=== PATIENT | male | born 1955 | race Caucasian/White ===

== ENCOUNTER → 2017-12-27 10:29 | Outpatient (CLI) | payer MEDICARE, MEDICAID, SELFPAY ==
[2017-12-27 12:14] LABS: INR 2.73 (0.9-1.1); Prothrombin Time 29.8 seconds (9.4-11.8)
== END ==
PROVIDERS: Visit Provider Family Medicine
DX: Z79.01 Long term (current) use of anticoagulants (principal); Z51.81 Encounter for therapeutic drug level monitoring
CPT/HCPCS: 36415; 85610

== ENCOUNTER → 2018-01-27 11:14 | Outpatient (CLI) | payer MEDICARE, MEDICAID, SELFPAY ==
[2018-01-27 11:34] LABS: INR 3.03 (0.9-1.1); Prothrombin Time 33.1 seconds (9.4-11.8)
== END ==
PROVIDERS: Visit Provider Family Medicine
DX: Z79.01 Long term (current) use of anticoagulants (principal); Z51.81 Encounter for therapeutic drug level monitoring
CPT/HCPCS: 36415; 85610

== ENCOUNTER → 2018-02-10 09:45 | Outpatient (CLI) | payer MEDICARE, MEDICAID, SELFPAY ==
[2018-02-10 10:19] LABS: INR 2.58 (0.9-1.1); Prothrombin Time 28.1 seconds (9.4-11.8)
== END ==
PROVIDERS: Visit Provider Family Medicine
DX: Z79.01 Long term (current) use of anticoagulants (principal)
CPT/HCPCS: 36415; 85610

== ENCOUNTER → 2018-12-15 14:33 | Outpatient (CLI) | payer MEDICARE, MEDICAID, SELFPAY ==
[2018-12-15 14:52] LABS: Prothrombin Time 20.2 seconds (9.4-11.8)
== END ==
PROVIDERS: Visit Provider Nurse Practitioner Family
DX: Z51.81 Encounter for therapeutic drug level monitoring (principal); Z79.01 Long term (current) use of anticoagulants; I48.0 Paroxysmal atrial fibrillation
CPT/HCPCS: 36415; 85610

== ENCOUNTER → 2022-03-06 14:47 | Outpatient (CLI) | payer MEDICARE, MEDICAID, SELFPAY | PROVIDERS: PCP Nurse Practitioner Family; Visit Provider Nurse Practitioner Family | DX: I49.9 Cardiac arrhythmia, unspecified (principal) | CPT/HCPCS: 93225; 93226 ==

== ENCOUNTER → 2022-04-04 07:53 | Outpatient (CLI) | payer MEDICARE, MEDICAID, SELFPAY | PROVIDERS: PCP Nurse Practitioner Family; Visit Provider Nurse Practitioner | DX: R06.09 Other forms of dyspnea (principal) | CPT/HCPCS: 78452; 93017; 93306; A9502; J2785 ==

== ENCOUNTER → 2022-04-27 14:26 | Outpatient (CLI) | payer MEDICARE, MEDICAID, SELFPAY ==
--- NOTE | 2022-04-27 14:29 | MR_ITS ---
FINAL REPORT TECHNIQUE: Multiplanar and multisequence imaging of the brain was obtained without contrast. CLINICAL HISTORY: . DIZZINESS [id number] FINDINGS: There is no mass effect or midline shift. The ventricles are symmetric in size and configuration without hydrocephalus. There is encephalomalacia in the inferior right frontal lobe. There is T2 abnormality likely representing gliosis. The cerebellum and brainstem have a normal appearance. There are no areas of restricted diffusion on diffusion weighted images to suggest acute infarct. Soft tissues are without acute abnormality. IMPRESSION: No acute intracranial abnormality. Chronic findings in the inferior right frontal lobe. Reviewed, Interpreted and Dictated by Dora Grant MD Transcribed by Nadir Lopez Authenticated and [facility]
== END ==
PROVIDERS: PCP Nurse Practitioner Family; Visit Provider Nurse Practitioner Family
DX: R42 Dizziness and giddiness (principal)
CPT/HCPCS: 70551

== ENCOUNTER → 2022-05-09 10:22 | Outpatient (CLI) | payer MEDICARE, MEDICAID, SELFPAY ==
[2022-05-09 11:00] LABS: Basophils # 0.1 K/mm3 (0-0.2); Basophils % 1.3 % (0.1-2.0); Eosinophils # 0.2 K/mm3 (0.0-0.4); Hematocrit 40.5 % (42.0-52.0); Lymphocytes # 1.3 K/mm3 (0.7-4.5); Lymphocytes % 28.8 % (10-50); Mean Corpuscular HGB Conc 32.2 g/dL (31.8-35.4); Mean Corpuscular Hemoglobin 29.9 pg (27.0-31.2); Mean Corpuscular Volume 92.8 fl (80-94); Mean Platelet Volume 8.2 fl (7.4-10.4); Monocytes # 0.3 K/mm3 (0.1-1.0); Neutrophils # 2.7 K/mm3 (1.8-7.8); Neutrophils % 57.9 % (37.0-80.0); Platelet Count 249 K/mm3 (142-424); Red Blood Count 4.36 M/mm3 (4.60-6.20); Red Cell Distribution Width 14.9 % (11.5-17.5); White Blood Count 4.6 K/mm3 (4.8-10.8)
[2022-05-09 11:24] LABS: Chloride 106 mmol/L (98-107); Potassium 4.4 mmoL/L (3.5-5.1); Sodium 141 mmol/L (136-145)
[2022-05-09 11:26] LABS: Bilirubin,Unconjugated 0.2 mg/dL (0.0-1.1); Blood Urea Nitrogen 26 mg/dl (9-20); Estimated Glomerular Filt Rate 97 ml/min (>60); GFR (African American) 117 ML/MIN (>60)
[2022-05-09 11:27] LABS: Alanine Aminotransferase 33 U/L (12-78); Albumin Level 4.5 g/dl (3.5-5.0); Alkaline Phosphatase 92 U/L (38-126); Anion Gap 8.4 mEq/L (5-15); Aspartate Amino Transferase 45 U/L (17-59); Bilirubin,Direct 0.2 mg/dl (0.0-0.4); Bilirubin,Indirect 0.2 mg/dL (0.0-0.9); Bilirubin,Total 0.4 mg/dl (0.2-1.3); Calcium 9.3 mg/dl (8.4-10.2); Carbon Dioxide 31 mmol/L (22.0-30.0); Chol/HDL Ratio 2.7 (1-3.5); Cholesterol 152 mg/dl (140-200); Glucose 99 mg/dl (74-100); HDL Cholesterol 56 mg/dl (40-60); Total Protein,Serum 6.9 g/dl (6.3-8.2); Triglycerides 88 mg/dl (30-150)
[2022-05-09 11:58] LABS: Thyroid Stimulating Hormone 2.51 uIU/mL (0.465-4.68)
[2022-05-09 12:02] LABS: Free T4 (Free Thyroxine) 0.94 ng/dl (0.78-2.19)
[2022-05-10 11:30] LABS: Direct LDL Cholesterol 80 mg/dL (100-129); VLDL Cholesterol 18 mg/dL (0-40)
== END ==
PROVIDERS: PCP Nurse Practitioner Family; Visit Provider Nurse Practitioner
DX: I48.91 Unspecified atrial fibrillation (principal); E78.5 Hyperlipidemia, unspecified; I10 Essential (primary) hypertension
CPT/HCPCS: 36415; 80048; 80061; 80076; 84439; 84443; 85025

== ENCOUNTER → 2022-06-23 11:16 | Outpatient (CLI) | payer MEDICARE, MEDICAID, SELFPAY | PROVIDERS: PCP Nurse Practitioner Family; Visit Provider Surgery | DX: Z01.812 Encounter for preprocedural laboratory examination (principal); Z20.822 Contact with and (suspected) exposure to COVID-19; Z12.11 Encounter for screening for malignant neoplasm of colon | CPT/HCPCS: C9803; U0003; U0005 ==

== ENCOUNTER 2022-06-26 10:54 | Day surgery (SDC) | payer MEDICARE, MEDICAID, SELFPAY ==
[2022-06-21 16:12] VITALS: BMI 22.9
[2022-06-26 11:26] VITALS: BP 135/77; PULSE 61; RESP 17; TEMP 37.1; O2SAT 99
--- NOTE | 2022-06-26 11:44 | EXP.ANES.CKL ---
[facility] Medical History History of atrial fibrillation History of hyperlipidemia History of hypertension Surgical History History of appendectomy Family History Other Leukemia Social History Smoking Status: Former smoker alcohol intake: never substance use type: denies use current occupational status: retired Travel in the last 8 weeks: None [facility] Anesthesia Checklist Patient Identification Patient Identification: Arm Band and Verbal (Name & ) Structural Data Admitted From: Home Planned Operative Procedure/s: Colonoscopy Consent for Planned Operative Procedure(s) Verified: Yes NPO Status Verified Time NPO: 07:00 (<1/2 cup black coffee) Chart Verification Results Verified: CBC and BMP Airway Assessment C-Spine Mobility Assessed: Yes TMJ Mobility Assessed: Yes Dentition: Edentulous Neurological Assessment Level of Consciousness: Awake Hx Seizures: No Numbness or tingling in extremities: No Anesthesia Plan Anesthesia Risk discussed: Yes Anesthesia Plan: Verified ASA Class: III Anesthesia Type: MAC
[2022-06-26 12:22] VITALS: O2SAT 99
--- NOTE | 2022-06-26 12:37 | HMH.SCOPE ---
Procedure: Date: 06/26/22 Patient Date of :: 1955 Procedure Performed:: Limited flexible sigmoidoscopy Colonoscopy aborted secondary to exceedingly poor bowel preparation. Indications:: Screening Performing Provider:: Panfilo Guzmán MD Referring Provider:: . Sedation:: Monitored anesthesia care Procedure:: After informed consent was obtained the patient was taken to the endoscopy suite. Sedation ensued after the patient was transferred to the left lateral decubitus position. Pulse, blood pressure, and oxygen saturation were monitored throughout the procedure. Digital rectal exam revealed no significant abnormality. The colonoscope was placed in position. Visualization was notably limited secondary to poor bowel preparation. As the colonoscope was advanced into the sigmoid colon visualization became increasingly poor and the decision was made to abort further efforts. The colonoscope was carefully removed and the patient was transferred to recovery in stable condition. Please see findings and specimens below for detail. Findings:: Colonoscopy aborted secondary to exceedingly poor bowel preparation Specimens:: None Recommendations:: Short-term repeat colonoscopy with extended/alternative bowel preparation. Patient may benefit from gastroenterology consultation secondary to possible chronic constipation. Complications:: Colonoscopy aborted secondary to exceedingly poor bowel preparation Estimated blood obtained (mL): 0
[2022-06-26 12:40] VITALS: BP 104/67; PULSE 59; RESP 12; TEMP 36.4; O2SAT 96
[2022-06-26 12:50] VITALS: BP 101/66; PULSE 51; RESP 16; O2SAT 96
[2022-06-26 13:00] VITALS: BP 153/68; PULSE 57; RESP 16; O2SAT 98
[2022-06-26 13:10] VITALS: BP 153/68; PULSE 58; RESP 16; TEMP 36.4; O2SAT 98
== END 2022-06-26 13:10 | disposition home or self-care (01) ==
PROVIDERS: PCP Nurse Practitioner Family; Visit Provider Surgery
PROC: 0DJD8ZZ Inspection of Lower Intestinal Tract, Via Natural or Artificial Opening Endoscopic (ICD-10-PCS; CPT 45330; principal; 2022-06-26 12:30)
DX: Z12.11 Encounter for screening for malignant neoplasm of colon (principal); Z91.19 Patient's noncompliance with other medical treatment and regimen; Z79.899 Other long term (current) drug therapy
CPT/HCPCS: G0104

== ENCOUNTER 2022-08-11 17:07 | Emergency (ER) | payer MEDICARE, MEDICAID, SELFPAY ==
[2022-08-11 18:15] VITALS: BP 116/83; PULSE 81; RESP 21; TEMP 36.8; O2SAT 98; BMI 23.1
--- NOTE | 2022-08-11 18:54 | EXP.UTC ---
Discharge Plan Disposition Patient Disposition: Home, Self-Care Condition: Good Prescriptions Prescriptions: New prednisone 10 mg tablet 10 mg PO BID 5 Days Qty: 10 0RF amoxicillin-pot clavulanate 875-125 mg Tablet 1 tab PO Q12H Qty: 20 0RF guaifenesin [Mucinex] 600 mg tablet extended release 12hr 600 mg PO BID PRN (Reason: cough) Qty: 20 0RF No Action Centrum Silver Men 300-600-300 mcg tablet 1 tab PO DAILY sodium,potassium,mag sulfates [Suprep Bowel Prep Kit] 17.5-3.13-1.6 gram recon soln See Rx Instructions PO .COMPLEX Qty: 354 0RF Rx Instructions: DILUTE; drink full amount early evening before AND next morning at least 2 hr before procedure; follow w 960 mL water PO Xarelto 20 mg tablet 20 mg PO DAILY Rx Instructions: must administer with evening meal carvedilol 25 MG tablet 25 mg PO BID lisinopril-hydrochlorothiazide 1 EACH tablet 1 tab PO DAILY pravastatin 20 MG tablet 20 mg PO HS omeprazole 20 MG tablet,delayed release (DR/EC) 20 mg PO DAILY Referrals Follow up/Referrals: Cindi Jones APRN [Primary Care Provider] - See instructions Activity Restrictions/Add. Instructions Additional Instructions/Restrictions: Start antibiotic today. Be sure to complete entire prescription even if feeling better Monitor temp. Tylenol every 4 hours as needed and / or ibuprofen every 6 hours as needed ( As long as your primary care physician has told you that it ok to take both. For fever/aches/pains ER if no less than 101 despite Tylenol or Motrin Humidifier/vaporizer or hot steamy shower Mucinex for your cough Be sure to drink lots of water. *Start steroid today. Helps with inflammation therefore, cough and wheezing. Follow directions on the package. Reviewed side effects. Patient reports taking them before. Follow up IMMEDIATELY for new or worsening of symptoms OR no noticeable improvement over the next 48-72 hours. 911 immediately for any life threatening symptoms such as chest pain or difficulty breathing Clinical Impressions Clinical Impression: Bronchitis Sinusitis Qualifiers: Sinusitis location: unspecified location Chronicity: unspecified Qualified Code(s): J32.9 - Chronic sinusitis, unspecified Instructions Patient Instructions: Sinusitis, Acute Bronchitis, DI for Sinusitis Discharge ED Provider: Lisa Morrow [facility] HPI General Stated complaint: SOA,Cough Mode of Arrival: Ambulatory Source of Information: Patient Limitations: No Limitations Time Seen by Provider: 08/11/22 18:54 Description of Symptoms (Recalled from Triage Doc. by RN): PATIENT C/O COUGH AND CHEST CONGESTION X 3 DAYS HEENT Symptoms (Recalled from RN notes): No Resp Symptoms (Recalled from RN notes): Yes Skin Symptoms (Recalled from RN notes): No MS Symptoms (Recalled from RN notes): No Functional Status (Recalled from RN notes): WNL History of Present Illness Provider Complaint: Patient states that he has been having sinus congestion and pressure, cough and feels like it is trying to move into his chest area states that he gets bronchitis sometimes and feels like if he dont get something it is going to turn into bronchitis Related Data Home Medications Medication Instructions Recorded Confirmed carvedilol 25 mg tablet 25 mg PO BID bp 04/05/18 07/04/22 lisinopril 20 1 tab PO DAILY bp 04/05/18 07/04/22 mg-hydrochlorothiazide 25 mg tablet omeprazole 20 mg tablet,delayed 20 mg PO DAILY Heartburn 04/05/18 07/04/22 release pravastatin 20 mg tablet 20 mg PO HS Cholesterol 04/05/18 07/04/22 [id number]-dgj-webwe acid 300 1 tab PO DAILY Supplement 04/03/22 07/04/22 mcg-lycopene 600 mcg-lutein 300 mcg tablet (Centrum Silver Men) rivaroxaban 20 mg tablet (Xarelto) 20 mg PO DAILY Blood thinner 06/21/22 07/04/22 Previous Rx's Medication Instructions Recorded sodium,potassium,mag sulfates 17.5 See Rx Instructions PO .COMPLEX
[2022-08-11 19:03] VITALS: BP 116/83; PULSE 81; RESP 21; TEMP 36.8; O2SAT 98
== END 2022-08-11 19:53 | disposition home or self-care (01) ==
PROVIDERS: Emergency Provider Nurse Practitioner; PCP Nurse Practitioner Family
DX: J32.9 Chronic sinusitis, unspecified (principal)
CPT/HCPCS: 96372; 99212; G0463; J0696

== ENCOUNTER 2022-09-11 06:47 | Day surgery (SDC) | payer MEDICARE, MEDICAID, SELFPAY ==
[2022-09-07 16:40] VITALS: BMI 24.0
[2022-09-11 06:59] VITALS: BP 135/90; PULSE 73; RESP 18; TEMP 36.2; O2SAT 99
--- NOTE | 2022-09-11 07:04 | EXP.ANES.CKL ---
[facility] Disclaimer: The information contained in this section may have been updated after the patient was seen, as this information can be updated by other users. Medical History History of atrial fibrillation History of hyperlipidemia History of hypertension Surgical History History of appendectomy History of colonoscopy Family History Other Leukemia Social History Smoking Status: Former smoker alcohol intake: never substance use type: denies use current occupational status: retired Travel in the last 8 weeks: None [facility] Anesthesia Checklist Patient Identification Patient Identification: Arm Band and Verbal (Name & ) Structural Data Admitted From: Home Planned Operative Procedure/s: Colonoscopy Consent for Planned Operative Procedure(s) Verified: Yes NPO Status Verified Time NPO: 00:00 Airway Assessment C-Spine Mobility Assessed: Yes TMJ Mobility Assessed: Yes Dentition: Edentulous Neurological Assessment Level of Consciousness: Awake Hx Seizures: No Numbness or tingling in extremities: No Anesthesia Plan Anesthesia Risk discussed: Yes Anesthesia Plan: Verified ASA Class: III Anesthesia Type: MAC
[2022-09-11 07:26] VITALS: O2SAT 99
[2022-09-11 07:54] VITALS: BP 92/67; PULSE 60; RESP 18; TEMP 36.4; O2SAT 97
--- NOTE | 2022-09-11 07:55 | P.PCN_ITS ---
Procedure: Date: 09/11/22 Patient Date of :: 1955 Procedure Performed:: Colonoscopy with polypectomy Indications:: Screening Colonoscopy attempted earlier this year; however, procedure was aborted secon jordon to exceedingly poor bowel preparation. Performing Provider:: Panfilo Guzmán MD Referring Provider:: . Sedation:: Monitored anesthesia care Procedure:: After informed consent was obtained the patient was taken to the endoscopy suite. Sedation ensued after the patient was transferred to the left lateral decubitus position. Pulse, blood pressure, and oxygen saturation were monitored throughout the procedure. Digital rectal exam revealed no significant abnormality. The colonoscope was placed in position. The entire colon was evaluated. The colonoscope was carefully removed and the patient was transferred to recovery in stable condition. Please see findings and specimens below for detail. Findings:: Bowel preparation poor with formed stool intermittently dispersed throughout the colon (still improved versus prior evaluation) Hepatic flexure polyp Adjacent proximal transverse colon polyps Specimens:: Hepatic flexure polyp (cold snare) Adjacent proximal transverse colon polyps (cold snare) Recommendations:: Gastroenterology consultation warranted for evaluation/management of likely chronic constipation. Short-term repeat colonoscopy warranted (deferred to gastroenterology service). Complications:: No immediate with the exception of poor bowel preparation Estimated blood obtained (mL): 1
[2022-09-11 08:04] VITALS: BP 95/61; PULSE 56; RESP 16; O2SAT 98
[2022-09-11 08:14] VITALS: BP 113/75; PULSE 69; RESP 16; O2SAT 99
[2022-09-11 08:24] VITALS: BP 130/74; PULSE 60; RESP 16; TEMP 36.4; O2SAT 99
== END 2022-09-11 08:33 | disposition home or self-care (01) ==
PROVIDERS: PCP Nurse Practitioner Family; Visit Provider Surgery
PROC: 0DJD8ZZ Inspection of Lower Intestinal Tract, Via Natural or Artificial Opening Endoscopic (ICD-10-PCS; principal; 2022-09-11 07:30)
DX: K63.5 Polyp of colon (principal); Z91.199 Patient's noncompliance with other medical treatment and regimen due to unspecified reason; Z79.899 Other long term (current) drug therapy
CPT/HCPCS: 45385; 88305

== ENCOUNTER 2023-06-23 | Emergency (ER) | payer MEDICARE, MEDICAID, SELFPAY ==
[2023-06-23 00:11] VITALS: BP 150/84; PULSE 69; RESP 28; TEMP 36.3; O2SAT 100; BMI 23.6
--- NOTE | 2023-06-23 00:15 | CT_ITS ---
PROCEDURE INFORMATION: Exam: CT Abdomen And Pelvis With Contrast Exam date and time: 06/23/2023 12:43 AM Age: 67 years old Clinical indication: Abdominal pain; Additional info: R chest/ruq pain TECHNIQUE: Imaging protocol: Computed tomography of the abdomen and pelvis with contrast. Radiation optimization: All CT scans at this facility use at least one of these dose optimization techniques: automated exposure control; mA and/or kV adjustment per patient size (includes targeted exams where dose is matched to clinical indication); or iterative reconstruction. Contrast material: ISOVUE; Contrast volume: 70 ml; Contrast route: IV; REPORTING DATA: Count of CT and Cardiac NM exams in prior 12 months: This patient has received 0 known CTs and 0 known cardiac nuclear medicine studies in the 12 months prior to the current study. COMPARISON: CR CXR2V XR chest 2V 04/05/2018 9:44 AM FINDINGS: Lungs: Suggestion of background interstitial septal thickening and mild hyperinflation. Bibasilar opacities, likely atelectasis. No lung mass. No pleural effusion. Heart: Borderline cardiomegaly and left atrial enlargement. Trace pericardial effusion. Liver: There are fatty changes of the liver. No hepatic focal lesions. Gallbladder and bile ducts: Normal. No calcified stones. No ductal dilation. Pancreas: The pancreas is mildly atrophic. Spleen: Normal. No splenomegaly. Adrenal glands: Normal. No mass. Kidneys and ureters: Normal. No hydronephrosis. Stomach and bowel: There is a large hiatal hernia containing the a large portion of the stomach. Thickening of the gastric beard is a nonspecific finding but can be seen in the setting of gastritis, in the appropriate clinical setting. Appendix: No evidence of appendicitis. Intraperitoneal space: Unremarkable. No free air. No significant fluid collection. Vasculature: There are atherosclerotic calcifications of the abdominal aorta and its branches. Lymph nodes: Unremarkable. No enlarged lymph nodes. Urinary bladder: Thickening of the bladder beard. Please correlate with urinalysis. Reproductive: Mild prostatomegaly with a tiny central zone calcification. Bones/joints: There are degenerative changes of the SI joints. There are degenerative changes of the lumbosacral spine. Decreased interspinous spaces in the lumbar spine could represent Baastrup's disease. Soft tissues: Unremarkable. IMPRESSION: 1. Large hiatal hernia. Thickening of the gastric beard can be seen in the setting of gastritis in the appropriate clinical setting. 2. Thickening of the beard of the bladder. Please correlate with urinalysis. 3. Additional miscellaneous/pertinent findings as detailed in the body of the report.
--- NOTE | 2023-06-23 00:15 | CT_ITS ---
PROCEDURE INFORMATION: Exam: CTA Chest With Contrast Exam date and time: 06/23/2023 12:43 AM Age: 67 years old Clinical indication: Pain; Chest pressure; Additional info: R chest/ruq pain TECHNIQUE: Imaging protocol: Computed tomographic angiography of the chest with contrast. Exam focused on the arteries. 3D rendering (Not supervised by radiologist): MIP and/or 3D reconstructed images were created by the technologist. Radiation optimization: All CT scans at this facility use at least one of these dose optimization techniques: automated exposure control; mA and/or kV adjustment per patient size (includes targeted exams where dose is matched to clinical indication); or iterative reconstruction. Contrast material: ISOVUE; Contrast volume: 70 ml; Contrast route: INTRAVENOUS (IV); REPORTING DATA: Count of CT and Cardiac NM exams in prior 12 months: This patient has received 0 known CTs and 0 known cardiac nuclear medicine studies in the 12 months prior to the current study. COMPARISON: CR CXR2V XR chest 2V 04/05/2018 9:44 AM FINDINGS: Pulmonary arteries: Normal. No pulmonary emboli. Aorta: There are atherosclerotic calcifications of the aortic arch and the origin of the arch vessels. No aortic aneurysm. No aortic dissection. Lungs: Mild paraseptal emphysema. Suggestion of background mild centrilobular emphysema/hyperinflation. Suggestion of subtle interstitial septal thickening. Bibasilar opacities, likely atelectasis. No consolidation. No masses. Pleural spaces: No pneumothorax. No pleural effusion. Heart: Mild cardiomegaly and left atrial enlargement. Trace pericardial effusion. Lymph nodes: Scattered small cervical lymph nodes are nonspecific. No enlarged lymph nodes by CT size criteria. Bones/joints: Mild kyphotic curvature at the lower thoracic spine. Mild degenerative changes of the thoracic spine. No acute fracture. Soft tissues: There is a large hiatal hernia containing large portion of the stomach. Thickening of the gastric beard is a nonspecific finding.. IMPRESSION: 1. No evidence of acute pulmonary embolism. 2. Large hiatal hernia. 3. Additional miscellaneous/pertinent findings as outlined. COMMENTS: In the absence of a history or active diagnosis of lung cancer, it is recommended that this patient with emphysema be evaluated for enrollment in a low dose CT lung cancer screening program.
--- NOTE | 2023-06-23 00:18 | ECG_ITS ---
APPROVED REPORT Exam: Resting ECG HR:60 bpm ECG Measurements Heart Rate 60 AXES QRSd 83 QRS 93 QT 406 T 87 QTc 407 Conclusion ATRIAL FIBRILLATION BORDERLINE RIGHT AXIS DEVIATION [QRS AXIS > 90] MINIMAL ST DEPRESSION [0.025+ mV ST DEPRESSION] ABNORMAL RHYTHM ECG UNCONFIRMED REPORT Electronically signed by : Eron Jack MD 06/23/2023 07:29:01
--- NOTE | 2023-06-23 00:19 | HMH.EDGENADL ---
Discharge Plan Disposition Patient Disposition: Home, Self-Care Prescriptions Prescriptions: No Action carvedilol 25 mg tablet 25 mg PO BID lisinopril-hydrochlorothiazide 20-25 mg tablet 1 tab PO DAILY pravastatin 20 mg tablet 20 mg PO DAILY omeprazole 20 mg capsule,delayed release(DR/EC) 20 mg PO DAILY Centrum Men 8 mg iron- 200 mcg-600 mcg tablet 1 tab PO DAILY Xarelto 20 mg tablet 20 mg PO DAILY Qty: 90 1RF Rx Instructions: must administer with evening meal guaifenesin [Mucinex] 600 mg tablet extended release 12hr 600 mg PO BID PRN (Reason: cough) Qty: 20 0RF Referrals Follow up/Referrals: Cindi Jones APRN [Primary Care Provider] - See instructions Activity Restrictions/Add. Instructions Additional Instructions/Restrictions: You were evaluated in the emergency department today. Please continue taking your medications at home as prescribed. Follow-up closely with your primary care provider. Return to the emergency department for new or worsening symptoms. Clinical Impressions Clinical Impression: Hernia, hiatal, Shortness of breath Instructions Patient Instructions: DI for Shortness of Breath, DI for Hiatal Hernia Discharge ED Provider: Marisol Choudhary General Adult HPI General Chief complaint: Shortness of Breath/Dyspnea Stated complaint: soa Time Seen by Provider: 06/23/23 00:11 Mode of Arrival: Family Vehicle Source of Information: Patient Limitations: No Limitations Description of Symptoms (Recalled from ER Triage Doc. by RN): 67 yo male presents with CC shortness of air, onset earlier this date that woke him up from sleep. Patient states when he went to bed he was okay . PMH: afib. Takes Xarelto daily. Patient denies productive cough, states very little can be worked up when attempting to cough. Former 1.5 ppd smoker (quit several years ago). Complained of accompanying dizziness. Denies angina, denies n/v/d. Afebrile. Denies sick contact. Minimal swelling present to BLE. History of Present Illness HPI narrative: This patient is a 67-year-old male with a history of atrial fibrillation managed on carvedilol and rivaroxaban, hypertension, and hyperlipidemia presenting to the emergency department for evaluation with concern for shortness of breath as well as right upper quadrant/right-sided chest pain that started suddenly this evening. He states that he had gone to bed and felt fine, but he woke up acutely just prior to arrival with this pain and shortness of breath. Nothing seems to make it better or worse. No recent fevers, chills, cough, congestion, nausea, vomiting, diarrhea, or other concerns. No recent falls or traumatic injuries. He denies any prior abdominal surgeries, and he denies any history of pulmonary issues such as COPD. No history of blood clots or clotting disorders. Related Data Home Medications Medication Instructions Recorded Confirmed carvedilol 25 mg tablet 25 mg PO BID 06/11/23 06/18/23 lisinopril 20 1 tab PO DAILY 06/11/23 06/18/23 mg-hydrochlorothiazide 25 mg tablet multivit,Ca,min-iron 8 mg-folic 1 tab PO DAILY 06/11/23 06/18/23 acid 200 mcg-lycopene 600 mcg tablet (Centrum Men) omeprazole 20 mg capsule,delayed 20 mg PO DAILY 06/11/23 06/18/23 release pravastatin 20 mg tablet 20 mg PO DAILY 06/11/23 06/18/23 Previous Rx's Medication Instructions Recorded guaifenesin 600 mg tablet, 600 mg PO BID PRN cough #20 tabs 08/11/22 extended release 12 hr (Mucinex) rivaroxaban 20 mg tablet (Xarelto) 20 mg PO DAILY Blood thinner #90 12/03/22 tabs Allergies Allergy/AdvReac Type Severity Reaction Status Date / Time No Known Allergies Allergy Verified 06/18/23 09:32 [facility] Disclaimer: The information contained in this section may have been updated after the patient was seen, as this information can be updated by other users. Medical History Ac
[2023-06-23 00:26] LABS: Basophils % 0.5 % (0.1-2.0); Eosinophils # 0.3 K/mm3 (0.0-0.4); Eosinophils % 5.8 % (0.1-12.0); Hematocrit 41.2 % (42.0-52.0); Hemoglobin 13.3 g/dL (14.1-18.0); Lymphocytes # 1.5 K/mm3 (0.7-4.5); Lymphocytes % 29.5 % (10-50); Mean Corpuscular HGB Conc 32.4 g/dL (31.8-35.4); Mean Corpuscular Hemoglobin 30.4 pg (27.0-31.2); Mean Corpuscular Volume 93.9 fl (80-94); Mean Platelet Volume 8.3 fl (7.4-10.4); Monocytes # 0.3 K/mm3 (0.1-1.0); Monocytes % 5.1 % (1.7-9.3); Platelet Count 224 K/mm3 (142-424); Red Blood Count 4.39 M/mm3 (4.60-6.20); Red Cell Distribution Width 13.4 % (11.5-17.5); White Blood Count 5.2 K/mm3 (4.8-10.8)
[2023-06-23 00:30] LABS: Chloride 109 mmol/L (98-107); Potassium 3.5 mmoL/L (3.5-5.1); Sodium 143 mmol/L (136-145)
[2023-06-23 00:32] LABS: Alanine Aminotransferase 40 U/L (12-78); Alkaline Phosphatase 79 U/L (38-126); Anion Gap 10.5 mEq/L (5-15); Aspartate Amino Transferase 62 U/L (17-59); Bilirubin,Total 0.4 mg/dl (0.2-1.3); Blood Urea Nitrogen 21 mg/dl (9-20); Carbon Dioxide 27 mmol/L (22.0-30.0); Creatinine Clearance Estimated 76 mL/min (50-200); Estimated Glomerular Filt Rate 84 ml/min (>60); GFR (African American) 102 ML/MIN (>60); Lipase 70 U/L (23-300)
[2023-06-23 00:33] LABS: Albumin/Globulin Ratio 1.5 (1.1-1.8); Calcium 8.7 mg/dl (8.4-10.2); Globulin 2.7 g/dL (1.3-3.2); Glucose 100 mg/dl (74-100); Total Protein,Serum 6.7 g/dl (6.3-8.2)
[2023-06-23 00:35] LABS: Activated Partial Thrombo Time 34.6 seconds (22.8-30.6); INR 1.47 (0.9-1.1); Prothrombin Time 15.5 seconds (10.1-12.5)
[2023-06-23 00:46] LABS: Troponin I < 0.01 ng/ml (0.00-0.034)
[2023-06-23 02:53] LABS: Microscopic, Urine URINE MICROSCOPIC (MICROSCOPIC)
[2023-06-23 02:58] LABS: Appearance,Urine CLEAR (Clear); Bilirubin,Urine Negative (Negative); Blood, Urine Negative (Negative); Color,Urine YELLOW (Yellow); Glucose,Urine (UA) Negative (Negative); Ketones,Urine Negative (Negative); Leukocyte Esterase,Urine Negative (Negative); Nitrate,Urine Negative (Negative); PH,Urine 7.5 (5.0-8.5); Protein,Urine Negative (Negative); Specific Gravity, Urine 1.015 (1.005-1.030)
[2023-06-23 03:16] LABS: Bacteria,Urine Trace /lpf; RBC,Urine Occasional #/hpf (0-3); Squamous Epithelial Cell,Urine Occasional #/hpf (0-5)
[2023-06-23 03:40] LABS: Troponin I < 0.01 ng/ml (0.00-0.034)
[2023-06-23 04:02] VITALS: BP 126/78; PULSE 56; RESP 13; TEMP 36.9
== END 2023-06-23 04:10 | disposition home or self-care (01) ==
PROVIDERS: Emergency Provider Emergency Medicine; PCP Nurse Practitioner Family
DX: R07.9 Chest pain, unspecified (principal); R06.02 Shortness of breath; K44.9 Diaphragmatic hernia without obstruction or gangrene; I48.91 Unspecified atrial fibrillation; I10 Essential (primary) hypertension; E78.5 Hyperlipidemia, unspecified
CPT/HCPCS: 71275; 74177; 80053; 81001; 83690; 84484; 85025; 85610; 85730; 93005; 96374; 96375; 99285; J2405; Q9967

== ENCOUNTER → 2023-08-15 13:04 | Outpatient (CLI) | payer MEDICARE, MEDICAID, SELFPAY ==
[2023-08-15 11:57] LABS: Adenovirus,PCR Not Detected (NotDetected); Coronavirus 229E Not Detected (NotDetected); Coronavirus NL63 Not Detected (NotDetected); Coronavirus OC43 Not Detected (NotDetected); Coronovirus HKU1,PCR Not Detected (NotDetected); Human Metapneumovirus Not Detected (NotDetected); Influenza A, PCR Not Detected (NotDetected); Influenza AH1, 2009 Not Detected (NotDetected); Influenza AH1, PCR Not Detected (NotDetected); Influenza AH3,PCR Not Detected (NotDetected); Influenza B, PCR Not Detected (NotDetected); Parainfluenza 1, PCR Not Detected (NotDetected); Parainfluenza 2, PCR Not Detected (NotDetected); Parainfluenza 3, PCR Not Detected (NotDetected); Parainfluenza 4, PCR Not Detected (NotDetected); Respiratory Syncytial Virus Not Detected (NotDetected); Rhinovirus/Enterovirus Not Detected (NotDetected)
[2023-08-15 14:19] LABS: Coronavirus 19, PCR Detected (NotDetected)
== END ==
PROVIDERS: PCP Nurse Practitioner Family; Visit Provider Internal Medicine
DX: R50.9 Fever, unspecified (principal); U07.1 COVID-19; R09.81 Nasal congestion
CPT/HCPCS: 87632; 87635

== ENCOUNTER → 2023-09-11 14:20 | Outpatient (CLI) | payer MEDICARE, MEDICAID, SELFPAY ==
[2023-09-18 23:22] LABS: Pancreatic Elastase, Fecal 66 (>200)
== END ==
PROVIDERS: Nurse Practitioner; PCP Nurse Practitioner Family; Visit Provider Nurse Practitioner Family
DX: R93.5 Abnormal findings on diagnostic imaging of other abdominal regions, including retroperitoneum; K86.89 Other specified diseases of pancreas; R10.10 Upper abdominal pain, unspecified; R19.5 Other fecal abnormalities
CPT/HCPCS: 82656

== ENCOUNTER 2023-10-31 10:07 | Day surgery (SDC) | payer MEDICARE, MEDICAID, SELFPAY ==
[2023-10-29 13:06] VITALS: BMI 24.3
[2023-10-31] VITALS (7 sets, daily range): BP systolic 101–147; BP diastolic 67–94; PULSE 55–70; RESP 17–18; TEMP 36.4–36.5; O2SAT 95–98
[2023-10-31] MEDS: LACTATED RINGERS 1000ML 1,000 ML 25 ML IV (10:46)
--- NOTE | 2023-10-31 11:17 | P.PNANES_ITS ---
[facility] Disclaimer: The information contained in this section may have been updated after the patient was seen, as this information can be updated by other users. Medical History Acid reflux History of atrial fibrillation History of hyperlipidemia History of hypertension Irregular heart beat Surgical History H/O chest tube placement History of appendectomy History of colonoscopy Family History Father Cancer Other Leukemia Social History Smoking Status: Unknown if ever smoked how long ago did patient quit smokin07/04/1995 quit status: quit date established second hand exposure: Yes alcohol intake: current substance use type: denies use current occupational status: unemployed and retired Travel in the last 8 weeks: None caffeine: No [facility] Anesthesia Checklist Patient Identification Patient Identification: Arm Band Structural Data Admitted From: Home Planned Operative Procedure/s: EGD Consent for Planned Operative Procedure(s) Verified: Yes Verified Documents: Surgical Consent and History and Physical NPO Status Verified Time NPO: 00:00 Additional verifications Anesthesia Reactions: No Airway Assessment Mallampati Score:: Class II C-Spine Mobility Assessed: Yes TMJ Mobility Assessed: Yes Dentition: Edentulous Neurological Assessment Level of Consciousness: Awake and Alert Anesthesia Plan Anesthesia Risk discussed: Yes Anesthesia Plan: Verified ASA Class: III Anesthesia Type: MAC
--- NOTE | 2023-10-31 11:31 | HMH.SCOPE ---
Procedure: Date: 10/31/23 Patient Date of :: 1955 Procedure Performed:: EGD & Dilation Indications:: Dysphagia Performing Provider:: David Wiley MD Referring Provider:: Faby Wiley APRN Sedation:: Propofol Procedure:: The gastroscope was gently passed through the incisoral orifice into the oral cavity and under direct visualization the esophagus was intubated. The endoscope was passed down the esophagus, through the stomach, and into the duodenum. Color, texture, mucosa, and anatomy of the esophagus, stomach, and duodenum were carefully examined with the scope. Findings:: Oropharynx: normal Esophagus: normal, empiric bougie dilation performed with 58F dilator EG Junction: intact at 40 cm, small hiatus hernia noted, no stricture noted Cardia: normal Fundus: normal Body: normal Antrum: normal Duodenal bulb: normal Duodenum (second and third portion): normal Impression: Small hiatus hernia, no obstruction Symptomatic dysphagia treated with bougie dilation Recommendations:: Follow up examination in about TEN years or so, sooner if clinically indicated. Complications:: None Estimated blood obtained (mL): 0 Colonoscopy Component Colonoscopy Component Was a colonoscopy performed during today's procedure?: No
== END 2023-10-31 12:10 | disposition home or self-care (01) ==
PROVIDERS: PCP Nurse Practitioner Family; Visit Provider Internal Medicine Gastroenterology
PROC: 0DJ08ZZ Inspection of Upper Intestinal Tract, Via Natural or Artificial Opening Endoscopic (ICD-10-PCS; CPT 43235; principal; 2023-10-31 12:00)
DX: R13.10 Dysphagia, unspecified (principal); K44.9 Diaphragmatic hernia without obstruction or gangrene
CPT/HCPCS: 43248

== ENCOUNTER 2023-11-20 06:32 | Outpatient (CLI) | payer MEDICARE, MEDICAID, SELFPAY ==
--- NOTE | 2023-11-20 06:40 | US_ITS ---
FINAL REPORT CLINICAL HISTORY: Evaluation of fatty liver disease, abnormal CT COMPARISON: None FINDINGS: Sonographic images of the right upper quadrant were obtained. The pancreas is obscured. There is fatty infiltration of the liver present. The gallbladder contains a small amount of sludge, although no definite stones are identified. There is no evidence of biliary ductal dilatation.The common duct measures 2.5 mm. Limited images of the right kidney are unremarkable. IMPRESSION: Fatty infiltration of the liver, with sludge present in the gallbladder without definite stones identified. No biliary ductal dilatation is seen. Pancreas obscured by overlying bowel gas. Reviewed, Interpreted and Dictated by Matthew Veras MD Transcribed by Delia Rubio Authenticated and [facility]
== END 2023-11-20 23:59 ==
LOC: RAD 06:32
PROVIDERS: PCP Nurse Practitioner Family; Visit Provider Nurse Practitioner
DX: K76.0 Fatty (change of) liver, not elsewhere classified (principal); R93.5 Abnormal findings on diagnostic imaging of other abdominal regions, including retroperitoneum
CPT/HCPCS: 76705

== ENCOUNTER 2024-01-02 09:48 | Outpatient (CLI) | payer MEDICARE, MEDICAID, SELFPAY ==
[2024-01-02 10:12] LABS: INR 1.24 (0.9-1.1); Prothrombin Time 13.2 seconds (10.1-12.5)
[2024-01-02 11:01] LABS: Alanine Aminotransferase 27 U/L (12-78); Albumin Level 4.2 g/dl (3.5-5.0); Albumin/Globulin Ratio 1.6 (1.1-1.8); Alkaline Phosphatase 74 U/L (38-126); Anion Gap 7.3 mEq/L (5-15); Aspartate Amino Transferase 39 U/L (17-59); Bilirubin,Total 1.8 mg/dl (0.2-1.3); Blood Urea Nitrogen 18 mg/dl (9-20); Calcium 9.4 mg/dl (8.4-10.2); Carbon Dioxide 34 mmol/L (22.0-30.0); Chloride 103 mmol/L (98-107); Estimated Glomerular Filt Rate 96 ml/min (>60); GFR (African American) 116 ML/MIN (>60); Globulin 2.6 g/dL (1.3-3.2); Glucose 106 mg/dl (74-100); Potassium 3.3 mmoL/L (3.5-5.1); Sodium 141 mmol/L (136-145); Total Protein,Serum 6.8 g/dl (6.3-8.2)
[2024-01-03 13:34] LABS: AFP, Tumor Marker 2.1 ng/mL (0.0-8.4)
== END 2024-01-02 23:59 ==
PROVIDERS: PCP Nurse Practitioner Family; Visit Provider Nurse Practitioner
DX: K76.0 Fatty (change of) liver, not elsewhere classified (principal); R93.2 Abnormal findings on diagnostic imaging of liver and biliary tract
CPT/HCPCS: 36415; 80053; 82105; 85610

== ENCOUNTER 2024-07-06 09:41 | Outpatient (CLI) | payer MEDICARE, MEDICAID, SELFPAY ==
--- NOTE | 2024-07-06 09:41 | US_ITS ---
FINAL REPORT CLINICAL HISTORY: eval of liver infiltrates COMPARISON: None FINDINGS: Sonographic images of the right upper quadrant were obtained. The pancreas is partially obscured.The liver has an unremarkable appearance.The gallbladder appears normal without evidence of gallstones.There is no evidence of biliary ductal dilatation.The common duct measures 3 mm. Limited images of the right kidney are unremarkable. IMPRESSION: Unremarkable right upper quadrant ultrasound. Reviewed, Interpreted and Dictated by Tomas Romo III, MD Transcribed by Gretchen Perez Authenticated and [facility]
== END 2024-07-06 23:59 | disposition home or self-care (01) ==
LOC: RAD 09:41
PROVIDERS: PCP Nurse Practitioner Family; Visit Provider Nurse Practitioner
DX: K76.0 Fatty (change of) liver, not elsewhere classified (principal); R93.5 Abnormal findings on diagnostic imaging of other abdominal regions, including retroperitoneum
CPT/HCPCS: 76705

== ENCOUNTER 2024-07-15 11:15 | Outpatient (CLI) | payer MEDICARE, MEDICAID, SELFPAY ==
[2024-07-15 13:17] LABS: Basophils # 0.1 K/mm3 (0-0.2); Eosinophils # 0.4 K/mm3 (0.0-0.4); Eosinophils % 8.9 % (0.1-12.0); Hematocrit 48.1 % (42.0-52.0); Hemoglobin 15.6 g/dL (14.1-18.0); Lymphocytes # 1.4 K/mm3 (0.7-4.5); Lymphocytes % 29.9 % (10-50); Mean Corpuscular HGB Conc 32.5 g/dL (31.8-35.4); Mean Corpuscular Hemoglobin 31.3 pg (27.0-31.2); Mean Corpuscular Volume 96.1 fl (80-94); Mean Platelet Volume 7.7 fl (7.4-10.4); Monocytes # 0.4 K/mm3 (0.1-1.0); Monocytes % 7.8 % (1.7-9.3); Neutrophils # 2.4 K/mm3 (1.8-7.8); Neutrophils % 52.4 % (37.0-80.0); Platelet Count 317 K/mm3 (142-424); Red Cell Distribution Width 13.9 % (11.5-17.5); White Blood Count 4.7 K/mm3 (4.8-10.8)
[2024-07-15 13:24] LABS: Creatinine,Urine Random 265 mg/dL (Not Estab.)
[2024-07-15 13:28] LABS: Microalbumin/Creatinine Ratio 4.3
[2024-07-15 14:15] LABS: Alanine Aminotransferase 27 U/L (12-78); Albumin Level 4.8 g/dl (3.5-5.0); Albumin/Globulin Ratio 1.8 (1.1-1.8); Alkaline Phosphatase 74 U/L (38-126); Anion Gap 5.8 mEq/L (5-15); Aspartate Amino Transferase 41 U/L (17-59); Bilirubin,Total 0.9 mg/dl (0.2-1.3); Blood Urea Nitrogen 27 mg/dl (9-20); Carbon Dioxide 32 mmol/L (22.0-30.0); Chloride 105 mmol/L (98-107); Chol/HDL Ratio 2.9 (1-3.5); Cholesterol 159 mg/dl (140-200); Estimated Glomerular Filt Rate 84 ml/min (>60); GFR (African American) 102 ML/MIN (>60); Globulin 2.7 g/dL (1.3-3.2); Glucose 66 mg/dl (74-100); HDL Cholesterol 55 mg/dl (40-60); Potassium 3.8 mmoL/L (3.5-5.1); Sodium 139 mmol/L (136-145); Total Protein,Serum 7.5 g/dl (6.3-8.2); Triglycerides 85 mg/dl (30-150); VLDL Cholesterol 17 mg/dL (0-40)
[2024-07-15 14:26] LABS: Direct LDL Cholesterol 70.92 mg/dL (100-129)
[2024-07-15 14:46] LABS: Prostate Specific Ag Screen 0.6 ng/ml (0.0-4.0)
[2024-07-15 15:53] LABS: Thyroid Stimulating Hormone 2.13 uIU/mL (0.465-4.68)
== END 2024-07-15 23:59 | disposition home or self-care (01) ==
LOC: LAB.DROPOF 07-16 10:20
PROVIDERS: PCP Nurse Practitioner Family; Visit Provider Nurse Practitioner Family
DX: Z12.5 Encounter for screening for malignant neoplasm of prostate (principal); I10 Essential (primary) hypertension; I48.0 Paroxysmal atrial fibrillation; E78.2 Mixed hyperlipidemia
CPT/HCPCS: 80053; 80061; 82043; 82570; 84443; 85025; G0103

== ENCOUNTER 2024-08-04 13:32 | Outpatient (CLI) | payer MEDICARE, MEDICAID, SELFPAY ==
[2024-08-05 11:15] LABS: DHEA-Sulfate 35.4 ug/dL (30.9-295.6)
[2024-08-10 14:11] LABS: Free Testosterone (Direct) 2.2 pg/mL (6.6-18.1); Testosterone, Total, LC/MS 468.4 ng/dL (264.0-916.0)
== END 2024-08-04 23:59 | disposition home or self-care (01) ==
LOC: LAB.DROPOF 13:32
PROVIDERS: PCP Nurse Practitioner Family; Visit Provider Nurse Practitioner Family
DX: N52.9 Male erectile dysfunction, unspecified (principal)
CPT/HCPCS: 82626

== ENCOUNTER 2024-08-26 13:47 | Emergency (ER) | payer MEDICARE, MEDICAID, SELFPAY ==
[2024-08-26 14:10] VITALS: BP 139/88; PULSE 65; RESP 18; TEMP 36.7; O2SAT 100; BMI 25.2
--- NOTE | 2024-08-26 14:23 | ED_ITS ---
Discharge Plan Disposition Patient Disposition: Home, Self-Care Condition: Good Prescriptions Prescriptions: No Action latanoprost 0.005 % drops 1 drp ophthalmic (eye) HS Patient Comments: INSTILL 1 DROP INTO EACH EYE AT BEDTIME carvedilol 25 mg tablet 25 mg PO DAILY Patient Comments: TAKE 1 TABLET BY MOUTH TWICE DAILY omeprazole 40 mg capsule,delayed release(DR/EC) 40 mg PO DAILY Patient Comments: TAKE 1 CAPSULE BY MOUTH ONCE DAILY lisinopril-hydrochlorothiazide 20-25 mg tablet 1 tab PO DAILY pravastatin 20 mg tablet 20 mg PO DAILY Xarelto 20 mg tablet 20 mg PO DAILY Creon 36,000-114,000- 180,000 unit capsule,delayed release(DR/EC) 1 cap PO DAILY Patient Comments: TAKE 1 CAPSULE BY MOUTH 4 TIMES DAILY WITH FOOD AND/OR SNACKS (ESPECIALLY WITH FATTY FOODS) Referrals Follow up/Referrals: Cindi Jones APRN [Primary Care Provider] - See instructions Activity Restrictions/Add. Instructions Additional Instructions/Restrictions: Suture instructions: ?You have required stitches today. Please read the following instructions so you know how to care for them: ?1. Keep wound area dry for the first 24 hours. 2?? May clean gently with mild soap and water, after 48 hours to prevent crusting over suture knots. 3. You may shower if your provider gives permission but do not take a bath until the skin is healed.. 4. Never leave a wet dressing or Band-Aid on your stitches as this allows bacteria to reach the area and may cause infection. Band-aids can cause the wound to sweat and not recommended to wear for long periods of time Watch for signs of infection: ? Increasing redness, tenderness or warmth around the suture site ? Unusual swelling around the site ? Appearance of pus around each suture or any red streaks ? Fever If you develop any of the above signs or symptoms of infection, Follow up with Family Physician immediately 5. Suture removal in _8-10___days 6. Return to [facility] or follow up with family doctor for removal. This can be done by any medical provider dur?ing regular hours on Saturday through Saturday, by appointment. Clinical Impressions Clinical Impression: Laceration Instructions Patient Instructions: DI for Laceration Repair Print Language Print Language: Tunisian Discharge ED Provider: Lisa Morrow [facility] [place] General Stated complaint: cut L hand ao Mode of Arrival: Ambulatory Source of Information: Patient Limitations: No Limitations Time Seen by Provider: 08/26/24 14:23 Description of Symptoms (Recalled from Triage Doc. 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 so he immediately applied pressure to it and came in to get checked not sure when his last tetanus was Related Data Home Medications ?Medication ?Instructions ?Recorded ?Confirmed carvedilol 25 mg tablet 25 mg PO DAILY 08/26/24 08/26/24 latanoprost 0.005 % eye drops 1 drp ophthalmic (eye) HS 08/26/24 08/26/24 [id number] 1 cap PO DAILY 08/26/24 08/26/24 36,000-114,000-180,000 unit capsule,delay rel (Creon) lisinopril 20 1 tab PO DAILY 08/26/24 08/26/24 mg-hydrochlorothiazide 25 mg tablet omeprazole 40 mg capsule,delayed 40 mg PO DAILY 08/26/24 08/26/24 release pravastatin 20 mg tablet 20 mg PO DAILY 08/26/24 08/26/24 rivaroxaban 20 mg tablet (Xarelto) 20 mg PO DAILY 08/26/24 08/26/24 Allergies Allergy/AdvReac Type Severity Reaction Status Date / Time No Known Allergies Allergy Verified 08/04/24 08:14 Worker's Comp Is this a Worker's Comp case?: No [facility] Disclaimer: The information contained in this section may have been updated after the patient was seen, as this information can be updated by other users. Medical History Acid reflux Irregular heart beat History of atrial fibrillation History of hypertension History of hyperlipidemia Surgical History H/O chest tube placement History of appendectomy History of colonoscopy Family History Father Cancer Other Leukemia Social History Smoking Status: Unknown if ever smoked how long ago did patient quit smokin07/04/1995 quit status: quit date established second hand exposure: Yes alcohol intake: current alcohol intake frequency: 0-2 drinks per day substance use type: denies use current occupational status: unemployed and retired caffeine: No ROS Obtained: Yes All systems reviewed & no additional complaints except as documented and Yes Systems reviewed as appropriate & no additional complaints except as documented Constitutional Constitutional: Reports system reviewed and no additional complaints, except as documented and Reports as per HPI ENT Ears, Nose, Mouth, and Throat: Reports system reviewed and no additional complaints, except as documented and Reports as per HPI Cardiovascular Cardiovascular: Reports system reviewed and no additional complaints, except as documented and Reports as per HPI Respiratory Respiratory: Reports system reviewed and no additional complaints, except as documented and Reports as per HPI Gastrointestinal Gastrointestingal: Reports system reviewed and no additional complaints, except as documented and as per HPI Integumentary/Breasts Skin/Breast: Reports system reviewed and no additional complaints, except as documented, Reports as per HPI and Reports other (laceration to left hand) Neurologic Neurologic: Reports system reviewed and no additional complaints, except as documented and Reports as per HPI Physical Exam General General appearance: alert and in no apparent distress ENT ENT exam: Present normal exam, normal oropharynx, mucous membranes moist and TM's normal bilaterally Respiratory Respiratory exam: Present normal lung sounds bilaterally; Absent respiratory distress, wheezes or stridor Cardiovascular Cardiovascular exam: Present regular rate, normal rhythm and normal heart sounds Expanded Upper Extremity Exam Left: Hand exam: Present laceration Hand L/R front image: 2 1. laceration (flap like laceration noted no active bleeding) Neurological Exam Neurological exam: Present alert, oriented X3 and normal gait Medical Decision Making Medical Records Screening: Per USPSTF and CDC recommendations, given the prevalence of disease in our region, it is our hospital?s policy to screen for HIV and viral Hepatitis for all patients aged 18 and over and those with ongoing risk factors. Floyd Inquiry Pt receiving controlled substance: No Floyd was queried for this patient: No Vital Signs: 08/26/24 14:10 Temperature 98.1 F Temperature Source Oral Pulse Rate [Right Brachial] 65 Respiratory Rate 18 Blood Pressure [Right Arm] 139/88 Blood Pressure Mean [Right Arm] 105 Blood Pressure Source [Right Arm] Automatic Cuff Blood Pressure Position [Right Arm] Sitting 02 Sat by Pulse Oximetry 100 Oxygen Delivery Method Room Air Procedures Laceration Laceration 1: Site: hand Side (If applicable): left Size (cm): 1.5 Description: flap Depth: simple, single layer Local Anesthetic: lidocaine 1% Amount of anesthesia used (mL): 1.5 Pre-repair: wound explored and irrigated extensively Skin layer closed with: nylon Size (cm): 4-0 Number of sutures: 7 Technique: simple, interrupted (wound edges approximated well)
[2024-08-26] MEDS: TET/DIPHTH/PERT-ADULT 0.5ML SYRINGE 0.5 ML IM (14:37)
[2024-08-26] MEDS: LIDOCAINE 1% PF 2ML AMPULE 2 ML SUBCUT (14:40)
[2024-08-26 15:34] VITALS: BP 139/88; PULSE 65; RESP 18; TEMP 36.7; O2SAT 100
== END 2024-08-26 15:39 | disposition home or self-care (01) ==
PROVIDERS: Emergency Provider Nurse Practitioner; PCP Nurse Practitioner Family
DX: S61.412A Laceration without foreign body of left hand, initial encounter (principal); W26.8XXA Contact with other sharp object(s), not elsewhere classified, initial encounter
CPT/HCPCS: 12001; 90715; 99214; G0382

== ENCOUNTER 2025-04-27 07:40 | Emergency (ER) | payer MEDICARE, MEDICAID, SELFPAY ==
[2025-04-27] VITALS (7 sets, daily range): BP systolic 149–172; BP diastolic 86–101; PULSE 59–72; RESP 10–19; TEMP 36.6–37.1; O2SAT 95–98; BMI 22.9
--- NOTE | 2025-04-27 07:46 | ECG_ITS ---
APPROVED REPORT Exam: Resting ECG HR:70 bpm ECG Measurements Heart Rate 70 AXES QRSd 140 QRS -30 QT 438 T 79 QTc 458 Conclusion ATRIAL FIBRILLATION LEFT BUNDLE BRANCH BLOCK [120+ ms QRS DURATION, 80+ ms Q/S IN V1/V2, 85+ ms R IN I/aVL/V5/V6] ABNORMAL ECG UNCONFIRMED REPORT Electronically signed by : ELKE SCHULTZ, 04/28/2025 05:58:06
--- NOTE | 2025-04-27 07:50 | XR_ITS ---
FINAL REPORT CLINICAL HISTORY: Shortness of breath x few days FINDINGS: PA and lateral views of the chest are obtained. There is no prior exam for comparison. The cardiac and mediastinal silhouettes are within normal limits. There are increased interstitial markings. There is left greater than right lower lobe airspace disease. There are small pleural effusions. These findings could represent pulmonary edema and/or pneumonia. No pneumothorax. IMPRESSION: Increased interstitial markings. Left greater than right lower lobe airspace disease. Small pleural effusions. Findings could represent pulmonary edema and/or pneumonia. Recommend radiographic follow-up. Reviewed, Interpreted and Dictated by Dora Grant MD Transcribed by Selene Caceres Authenticated and [facility]
--- NOTE | 2025-04-27 07:51 | HMH.EDGENADL ---
Discharge Plan Disposition Patient Disposition: Home, Self-Care Prescriptions Prescriptions: New furosemide [Lasix] 20 mg tablet 20 mg PO DAILY Qty: 30 0RF potassium chloride [K-Tab] 20 mEq tablet extended release 20 meq PO DAILY Qty: 30 0RF clindamycin HCl [Cleocin HCl] 300 mg capsule 300 mg PO BID 7 Days Qty: 14 0RF No Action Centrum Silver Men [phone] mcg tablet 1 tab PO DAILY lisinopril-hydrochlorothiazide 20-25 mg tablet 1 tab PO DAILY Qty: 90 1RF pravastatin 20 mg tablet 20 mg PO DAILY Qty: 90 1RF Xarelto 20 mg tablet 20 mg PO DAILY Qty: 90 1RF omeprazole 40 mg capsule,delayed release(DR/EC) 40 mg PO DAILY Qty: 90 1RF carvedilol 25 mg tablet 25 mg PO BID Qty: 180 1RF Creon 36,000-114,000- 180,000 unit capsule,delayed release(DR/EC) 1 cap PO DAILY Qty: 100 3RF Rx Instructions: Take 1 capsule before meal and snacks; max dose 6 tablets a day latanoprost 0.005 % drops 1 drp ophthalmic (eye) HS Qty: 7.5 1RF Referrals Follow up/Referrals: Cindi Jones APRN [Primary Care Provider, Medical] - See instructions Activity Restrictions/Add. Instructions Additional Instructions/Restrictions: You were found to have fluid on your lungs that is likely causing your shortness of breath. You are being prescribed a diuretic, which helps you pee out the excess fluid. Take the Lasix as prescribed. This can also lower your potassium, so take the potassium supplementation as prescribed. You are also being prescribed clindamycin for possible pneumonia. I encourage you to follow-up with Dr. Novak's office this week for close follow-up. If you develop any new or worsening symptoms, such as worsening shortness of breath, chest pain, or if you become concerned for your health for any reason, return to the emergency department for evaluation Clinical Impressions Clinical Impression: Breath shortness, Volume overload, Pneumonia Print Language Print Language: Andorran Discharge ED Provider: Juve Gage Adult [facility] General Chief complaint: Shortness of Breath/Dyspnea Stated complaint: breathing soa Time Seen by Provider: 04/27/25 07:44 Mode of Arrival: Ambulatory Source of Information: Patient Limitations: No Limitations History of Present Illness HPI narrative: Deniz Downs is a 69-year-old male with history of A-fib on Xarelto, hypertension, hyperlipidemia who presents to the emergency department for complaints of shortness of breath. Over the last several days, patient states that he has intermittently had shortness of breath when he lies flat. He states that it bothered him last night, however the night before did not bother him and he went directly to sleep at that time. He denies any recent swelling or unexpected weight gain. He denies any chest pain. He denies any cough or fevers or nausea or vomiting or diarrhea. He denies any history of heart failure or heart attacks. He states otherwise he has been in his normal state of health. Related Data Home Medications ?Medication ?Instructions ?Recorded ?Confirmed [id number]-[id number] 300 mcg-K 60 1 tab PO DAILY 01/14/25 01/14/25 mcg-lycop 600 mcg-lutein 300 mcg tablet (Centrum Silver Men) Previous Rx's ?Medication ?Instructions ?Recorded lisinopril 20 1 tab PO DAILY #90 tabs 10/13/24 mg-hydrochlorothiazide 25 mg tablet pravastatin 20 mg tablet 20 mg PO DAILY #90 tabs 10/13/24 rivaroxaban 20 mg tablet (Xarelto) 20 mg PO DAILY #90 tabs 10/13/24 omeprazole 40 mg capsule,delayed 40 mg PO DAILY #90 caps 12/28/24 release carvedilol 25 mg tablet 25 mg PO BID #180 tabs 01/05/25 [id number] 1 cap PO DAILY EPI #100 caps 01/19/25 36,000-114,000-180,000 unit capsule,delay rel (Creon) latanoprost 0.005 % eye drops 1 drp ophthalmic (eye) HS #7.5 mL 03/23/25 clindamycin HCl 300 mg capsule 300 mg PO BID 7 days #14 caps 04/27/25 (Cleocin HCl) furosemide 20 mg tablet (Lasix) 20 mg PO DAILY #30 tabs 04/27/25 potassium chloride 20 mEq 20 meq PO DAILY #30 tabs 04/27/25 tablet,extended release (K-Tab) Allergies Allergy/AdvReac Type Severity Reaction Status Date / Time No Known Allergies Allergy Verified 01/14/25 11:31 [facility] Disclaimer: The information contained in this section may have been updated after the patient was seen, as this information can be updated by other users. Medical History Acid reflux Irregular heart beat History of atrial fibrillation History of hypertension History of hyperlipidemia Surgical History H/O chest tube placement History of appendectomy History of colonoscopy Family History Father Cancer Other Leukemia Social History (Updated 01/14/25 @ 11:35 by Kena Watkins MA) Smoking Status: Never smoker how long ago did patient quit smokin07/04/1995 quit status: quit date established second hand exposure: Yes alcohol intake: current alcohol intake frequency: 0-2 drinks per day substance use type: denies use current occupational status: unemployed and retired Travel in the last 8 weeks?: None caffeine: No Have you lived/traveled outside [place] in past 30 days?: No Contact w/someone who lives/traveled outside US past 30 days?: No Exposure to someone with infectious disease in past 14 days?: No Do you have a fever (greater than 100.4 F or 38 C)?: No Have you tested positive for COVID-19?: No Exposed to someone with COVID-19 in past 14 days?: No Do you have a sore throat?: No Do you have a cough?: No Do you have any weakness?: No Do you have any diarrhea?: No Are you experiencing any unusual bleeding?: No Do you have any muscle aches/pain?: No Do you have any abdominal pain?: No Are you experiencing loss of taste or smell?: No Other Medical History Have you received the Pneumonia Vaccine: Yes ROS Obtained: Yes Systems reviewed as appropriate & no additional complaints except as documented Physical Exam General General appearance: alert and in no apparent distress Head Head exam: atraumatic Eye Eye exam: Present normal appearance ENT ENT exam: Present normal external ear exam Neck Neck exam: Present full ROM Chest Chest inspection: Present symmetric chest wall rise Respiratory Respiratory exam: Absent normal lung sounds bilaterally (Mild crackles bilaterally) or respiratory distress Cardiovascular Cardiovascular exam: Present regular rate and normal rhythm Abdominal Exam Abdominal exam: Present soft; Absent tenderness or guarding exam: Present deferred Extremities Exam Extremities exam: Present normal inspection and edema (mild pitting edema to distal bilateral lower extremities) Back Exam Back exam: Present normal inspection Neurological Exam Neurological exam: Present alert and oriented X3 Psychiatric Psychiatric exam: Present normal affect Skin Skin exam: Present warm and dry Medical Decision Making Medical Records Screening: Per USPSTF and CDC recommendations, given the prevalence of disease in our region, it is our hospital?s policy to screen for HIV and viral Hepatitis for all patients aged 18 and over and those with ongoing risk factors. Floyd Inquiry Pt receiving controlled substance: No Vital Signs: 04/27/25 07:49 04/27/25 08:00 04/27/25 08:30 Temperature 97.9 F Temperature Source Oral Pulse Rate 59 L 72 Pulse Rate [Right] 64 Respiratory Rate 18 10 L 19 Blood Pressure 149/93 H 157/86 H Blood Pressure [Right Arm] 160/101 H Blood Pressure Mean [Right Arm] 120 02 Sat by Pulse Oximetry 97 95 97 Oxygen Delivery Method Room Air 04/27/25 09:00 04/27/25 09:45 Temperature Temperature Source Pulse Rate 61 64 Pulse Rate [Right] Respiratory Rate 18 13 Blood Pressure 172/91 H 165/97 H Blood Pressure [Right Arm] Blood Pressure Mean [Right Arm] 02 Sat by Pulse Oximetry 98 95 Oxygen Delivery Method Lab Data Lab Results 04/27/25 07:48: WBC 5.6, RBC 4.11 L, Hgb 12.6 L, Hct 37.9 L, MCV 92.2, MCH 30.7, MCHC 33.2, RDW 14.5, Plt Count 195, MPV 9.4, Neut % (Auto) 60.4, Lymph % (Auto) 20.8, [place] % (Auto) 8.2, Eos % (Auto) 9.9, Baso % (Auto) 0.5, Neut # (Auto) 3.4, Lymph # (Auto) 1.2, [place] # (Auto) 0.5, Eos # (Auto) 0.6 H, Baso # (Auto) 0.0, D-Dimer 0.36, Sodium 142, Potassium 3.4 L, Chloride 105, Carbon Dioxide 32 H, Anion Gap 8.4, BUN 22 H, Creatinine 0.90, Estimated Creat Clear 72, Estimated GFR 84, Est GFR ( Amer) 101, Glucose 80, Calcium 9.5, Total Bilirubin 0.7, AST 46, ALT 37, Alkaline Phosphatase 127 H, Troponin I < 0.01, NT-Pro-B Natriuret Pep 1320 H, Total Protein 7.1, Albumin 4.6, Globulin 2.5, Albumin/Globulin Ratio 1.8, HCV Ab KYIA w/Rflx PCR Qn Negative, HIV Ag/Ab Combo Qual Negative 04/27/25 07:51: VBG pH 7.38, VBG pCO2 47.3, VBG pO2 38.4, VBG HCO3 27.1, VBG Total CO2 28.6 H, VBG O2 Saturation 68.9, VBG Base Excess 1.3, VBG Lactic Acid 1.0 04/27/25 07:48 04/27/25 07:48 Orders (Tests/Meds): ED MEDICATIONS Discontinued Medications Generic Name Dose Route Start Last Admin Trade Name Freq PRN Reason Stop Dose Admin Furosemide 20 mg 04/27/25 08:43 04/27/25 08:51 Furosemide 20mg Tablet PO 04/27/25 08:44 20 mg ONCE ONE Administration ORDERS Category Date Time Status CXR 2 view (NOT portable) [XR chest 2V] Stat Exams 04/27/25 07:50 Completed POCUS Point of Care (ER Only) Stat Exams 04/27/25 07:50 Completed BNP [NT Pro Brain Natriuretic Pep.] Stat Lab 04/27/25 07:48 Completed CBC w/Auto Diff [Complete Blood Count Auto Diff] Stat Lab 04/27/25 07:48 Completed CMP [Comprehensive Metabolic Panel] Stat Lab 04/27/25 07:48 Completed D-Dimer Stat Lab 04/27/25 07:48 Completed HIV Combo Stat Lab 04/27/25 07:48 Completed Hepatitis C Ab Qual. W/ RFX Stat Lab 04/27/25 07:48 Completed Troponin I Q3H Lab 04/27/25 11:00 Ordered Troponin I Q3H Lab 04/27/25 14:00 Ordered Troponin I Stat Lab 04/27/25 07:48 Completed VBG [Venous Blood Gas] Stat RT 04/27/25 07:51 Completed ECG Data Tracing #1: I reviewed this ECG and interpreted as documented below: Atrial fibrillation with ventricular rate of 70 bpm. Left bundle branch block but no STEMI based on Sgarbossa criteria. No T wave inversions. Medical Decision Narrative: Deniz Downs is a 69-year-old male with history of A-fib on Xarelto, hypertension, hyperlipidemia who presents to the emergency department for complaints of shortness of breath. Over the last several days, patient states that he has intermittently had shortness of breath when he lies flat. He states that it bothered him last night, however the night before did not bother him and he went directly to sleep at that time. He denies any recent swelling or unexpected weight gain. He denies any chest pain. He denies any cough or fevers or nausea or vomiting or diarrhea. He denies any history of heart failure or heart attacks. He states otherwise he has been in his normal state of health. On arrival, patient is hypertensive, in no acute respiratory distress, sitting upright in his stretcher, appropriate oxygen saturation on room air. Afebrile. Physical exam, as stated above, reveals an overall well-appearing male. He has mild crackles on lung exam bilaterally but no murmurs or wheezing. Abdomen is soft, nontender nondistended. He does have some mild pitting edema in his distal bilateral lower extremities. Differential diagnosis includes, but is not limited to: CHF, ACS, pulmonary embolism, pneumonia, pericarditis, myocarditis, pneumothorax, volume overload, electrolyte derangement, metabolic derangement, among others. The most morbid conditions were considered and workup was based on these. Workup in the emergency department included: EKG, two-view chest x-ray, D-dimer, troponin, BNP, CBC, CMP, VBG, , [id number] cardiac and lung ultrasound Workup showed no leukocytosis, hemoglobin is mildly low at 12.6 and hematocrit of 37.9, platelets normal at 195. D-dimer negative at 0.36, VBG unremarkable nonactionable with normal lactic acid and pH. Mildly low potassium of 3.4 but electrolytes otherwise within normal limits. Mildly elevated BUN of 22 but no YASH with creatinine of 0.9. Troponin less than 0.01. BNP is somewhat elevated at 1320 (no previous comparison). EKG without evidence of ischemia. See interpretation above [id number] ultrasound showed dilated bilateral atria but overall normal estimated left ventricular EF. Patient does have bilateral jets into the atria on color-flow consistent with valvular insufficiency. On lung ultrasound, patient does have scattered B-lines bilaterally in the lower lung webb. See procedure notes for details. Chest x-ray interpreted by me personally. There is increased vascular markings bilaterally and small pleural effusions bilaterally consistent with volume overload. Per radiology, increased interstitial markings, left greater than right lower lobe airspace disease that could represent pneumonia versus pulmonary edema. No pneumothorax Patient was given 20 mg of oral Lasix here in the emergency department. Is felt that he is appropriate for discharge at this time with low-dose Lasix daily (20 mg) as well as potassium supplementation for volume overload that could be from his valvular insufficiency. Will also prescribe clindamycin in case this is business office representative of a pneumonia. 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 I did encourage him to follow with Dr. Novak this week for close follow-up. Return precautions were given. All questions were answered. He demonstrated understanding and was in agreement with this plan. He was then discharged from the emergency department in stable condition Procedures Limited Ultrasound Interpretation:: Limited cardiac ultrasound Indication: Shortness of breath Identified cardiac views: -Cardiac parasternal long axis -Cardiac parasternal short axis -Cardiac apical four-chamber -Cardiac subxiphoid Findings: -Cardiac activity present, normal estimated left ventricular ejection fraction -Wall motion grossly normal. Grossly dilated left and right atria with jets into the atria bilaterally on color-flow concerning for possible valvular insufficiency -Pericardial effusion absent -Right heart strain absent Impression: - From above Images were saved to permanent archive The study was technically adequate CPT: 95275 This study was performed by tn, and I personally interpreted all images/videos. Based on my clinical judgement, these images were adequate and did not necessitate further imaging. Limited lung ultrasound A focused ultrasound exam of the pleural spaces was performed to evaluate for pneumothorax, pulmonary edema, pleural effusion and/or consolidation. The ultrasound was performed with the following indications, as noted in the H&P: Dyspnea Identified structures: RIGHT and LEFT thoracic cavities were examined. Findings: Lung sliding: - Left present - Right present B-lines: - Left present - Right present Pleural effusion: - Left absent - Right absent Consolidation: - Left absent - Right absent Impression: - Pneumothorax absent - Pleural effusion present - B-lines present - Consolidation absent Images were saved to permanent archive The study was technically adequate CPT 91009-62 This study was performed by tn, and I personally interpreted all images/videos. Based on my clinical judgement, these images were adequate and did not necessitate further imaging. Critical Care Critical Care Time Critical Care Time: No
[2025-04-27 07:56] LABS: Hematocrit 37.9 % (42.0-52.0); Hemoglobin 12.6 g/dL (14.1-18.0); Immature Granulocytes % 0.2 %; Mean Corpuscular HGB Conc 33.2 g/dL (31.8-35.4); Mean Corpuscular Hemoglobin 30.7 pg (27.0-31.2); Mean Corpuscular Volume 92.2 fl (80-94); Nucleated Red Blood Cells % 0 %; Platelet Count 195 K/mm3 (142-424); Red Blood Count 4.11 M/mm3 (4.60-6.20); Red Cell Distribution Width-SD 48.9 fL; White Blood Count 5.6 K/mm3 (4.8-10.8)
--- OUTSIDE RECORDS SUMMARY | 2025-04-27 07:59 | XMS_ITS | Clinical Summary ---
Author Organization [facility] Address [address] [place] [address] Care Team Providers Care Traffic Operations Manager Name Role Phone Unavailable Primary Care Provider Unavailabl e Social History Tobacco Use Types Packs/Day Years Used Date Smoking Tobacco: Never Assessed Sex and Gender Information Value Date Recorded Sex Assigned at Not on file Legal Sex Male 6:44 PM EDT Gender Identity Not on file Sexual Orientation Not on file Plan of Treatment Health Maintenance Due Date Last Done Comments UKY-Depression Screening 1955 UKY-Infant/Child/Adol SDOH Screenings 1955 UKY- SDOH Screenings 1973 UKY-Adult SDOH Screenings 1973 UKY-DTaP,Tdap,and Td Vaccines (1 - Tdap) 1974 CT Colonography 2000 Colonoscopy 2000 FIT-DNA 2000 FIT 2000 FOBT 2000 Sigmoidoscopy 2000 UKY-Colorectal Cancer Screening 2000 UKY-Pneumococcal Vaccine: 50+ Years (1 of 1 - PCV) 2005 UKY-Zoster Vaccines (1 of 2) 2005 [id number] Vaccine ( - season) 2024 03/06/2022, 09/08/2021, 03/06/2021, Additional history exists UKY-Influenza Vaccine (#1) 2025 UKY-RSV Vaccine: 60+ Years or (1 - 1-dose 75+ series) 2030 HPV Vaccines Aged Out No longer eligi ble based on patient's age to complete this topic UKY-HIB Vaccines Aged Out No longer e ligible based on patient's age to complete this topic UKY-Hepatitis A Vaccines Aged Out No longer eligible based on patient's age to complete this topic UKY-IPV Vaccines Aged Out No longer e ligible based on patient's age to complete this topic UKY-Rotavirus Vaccines Aged Out No lo nger eligible based on patient's age to complete this topic Insurance MEDICARE
[2025-04-27 08:05] LABS: Albumin Level 4.6 g/dl (3.5-5.0); Albumin/Globulin Ratio 1.8 (1.1-1.8); Calcium 9.5 mg/dl (8.4-10.2); Carbon Dioxide 32 mmol/L (22.0-30.0); Globulin 2.5 g/dL (1.3-3.2); Glucose 80 mg/dl (74-100); Potassium 3.4 mmoL/L (3.5-5.1); Total Protein,Serum 7.1 g/dl (6.3-8.2)
[2025-04-27 08:10] LABS: Alanine Aminotransferase 37 U/L (12-78); Alkaline Phosphatase 127 U/L (38-126); Anion Gap 8.4 mEq/L (5-15); Aspartate Amino Transferase 46 U/L (17-59); Bilirubin,Total 0.7 mg/dl (0.2-1.3); Blood Urea Nitrogen 22 mg/dl (9-20); Chloride 105 mmol/L (98-107); Creatinine Clearance Estimated 72 mL/min (50-200); Creatinine,Serum 0.90 mg/dl (0.66-1.25); D-Dimer 0.36 ug/mL (0.0-0.5); Estimated Glomerular Filt Rate 84 ml/min (>60); GFR (African American) 101 ML/MIN (>60); Sodium 142 mmol/L (136-145)
[2025-04-27 08:11] LABS: Lactate Venous 1.0 mmol/L (0.4-2.0); VBG HCO3 27.1 mmol/L (23-30); VBG PCO2 47.3 mmol/L (35-51); VBG PH 7.38 mmol/L (7.31-7.41); VBG PO2 38.4 mmol/L (28-40)
[2025-04-27 08:21] LABS: NT Pro Brain Natriuretic Pep. 1320 pg/mL (0-125)
[2025-04-27 08:23] LABS: Troponin I < 0.01 ng/ml (0.00-0.034)
[2025-04-27] MEDS: FUROSEMIDE 20MG TABLET 20 MG PO (08:51)
--- NOTE | 2025-04-27 09:31 | PC.NURSE ---
assisted pt to the bathroom to void. Assisted back in bed. Side rails up. Call light within reach. Family at bedside.
[2025-04-27 09:44] LABS: Hepatitis C Ab Qual. W/ RFX NEGATIVE (Negative)
== END 2025-04-27 10:17 | disposition home or self-care (01) ==
PROVIDERS: Emergency Provider Student in an Organized Health Care Education/Training Program; PCP Nurse Practitioner Family
DX: J18.9 Pneumonia, unspecified organism (principal); E87.70 Fluid overload, unspecified
CPT/HCPCS: 71046; 80053; 82803; 83880; 84484; 85025; 85378; 86803; 87389; 93005; 99284

== ENCOUNTER 2025-05-04 13:48 | Outpatient (CLI) | payer MEDICARE, MEDICAID, SELFPAY ==
--- NOTE | 2025-05-04 13:58 | XR_ITS ---
FINAL REPORT CLINICAL HISTORY: pneumonia, volume overload COMPARISON: 04/27/2025 FINDINGS: CHEST 2 VIEWS PA AND LATERAL The heart is normal in size. There is a moderate hiatal hernia which is stable. There are mild chronic changes in both lungs. There is no pneumothorax. IMPRESSION: No acute process. Reviewed, Interpreted and Dictated by Matthew Veras MD Transcribed by Ivy Horton Authenticated and [facility]
--- OUTSIDE RECORDS SUMMARY | 2025-05-04 14:04 | XMS_ITS | Clinical Summary ---
Author Organization [facility] Address [address] [place] [address] Care Team Providers Care Distribution Tech Name Role Phone Unavailable Primary Care Provider [...] Date Last Done Comments UKY-Depression Screening 1955 UKY-/Child/Adol SDOH Screenings 1955 UKY- SDOH Screenings 1973 UKY-Adult SDOH Screenings 1973 UKY-DTaP,Tdap,and Td Vaccines (1 - Tdap) 1974 CT Colonography 2000 Colonoscopy 2000 FIT-DNA 2000 FIT 2000 FOBT 2000 Sigmoidoscopy 2000 UKY-Colorectal Cancer Screening 2000 UKY-Pneumococcal Vaccine: 50+ Years (1 of 1 - PCV) 2005 UKY-Zoster Vaccines (1 of 2) 2005 [id number] Vaccine ( - season) 2024 03/06/2022, 09/08/2021, [...]
[2025-05-04 14:42] LABS: Hematocrit 40.9 % (42.0-52.0); Hemoglobin 13.2 g/dL (14.1-18.0); Immature Granulocytes % 0.2 %; Mean Corpuscular HGB Conc 32.3 g/dL (31.8-35.4); Mean Corpuscular Hemoglobin 29.8 pg (27.0-31.2); Mean Corpuscular Volume 92.3 fl (80-94); Nucleated Red Blood Cells % 0 %; Platelet Count 246 K/mm3 (142-424); Red Blood Count 4.43 M/mm3 (4.60-6.20); Red Cell Distribution Width-SD 48.7 fL; White Blood Count 4.8 K/mm3 (4.8-10.8)
[2025-05-04 15:18] LABS: Hemoglobin A1C 5.2 % (4.0-6.0)
[2025-05-04 16:12] LABS: Albumin Level 4.0 g/dl (3.5-5.0); Chloride 105 mmol/L (98-107); Potassium 4.6 mmoL/L (3.5-5.1); Sodium 139 mmol/L (136-145)
[2025-05-04 16:14] LABS: Blood Urea Nitrogen 24 mg/dl (9-20); Creatinine,Serum 0.90 mg/dl (0.66-1.25); Estimated Glomerular Filt Rate 84 ml/min (>60); GFR (African American) 101 ML/MIN (>60)
[2025-05-04 16:15] LABS: Alanine Aminotransferase 29 U/L (12-78); Albumin/Globulin Ratio 1.2 (1.1-1.8); Alkaline Phosphatase 125 U/L (38-126); Anion Gap 7.6 mEq/L (5-15); Aspartate Amino Transferase 43 U/L (17-59); Bilirubin,Total 0.8 mg/dl (0.2-1.3); Calcium 9.7 mg/dl (8.4-10.2); Carbon Dioxide 31 mmol/L (22.0-30.0); Globulin 3.3 g/dL (1.3-3.2); Glucose 93 mg/dl (74-100); Total Protein,Serum 7.3 g/dl (6.3-8.2)
[2025-05-04 16:22] LABS: NT Pro Brain Natriuretic Pep. 705 pg/mL (0-125)
== END 2025-05-04 23:59 | disposition home or self-care (01) ==
LOC: LAB 13:49
PROVIDERS: PCP Nurse Practitioner Family; Visit Provider Nurse Practitioner Family
DX: J18.9 Pneumonia, unspecified organism (principal); R73.9 Hyperglycemia, unspecified; E87.70 Fluid overload, unspecified
CPT/HCPCS: 36415; 71046; 80053; 83036; 83880; 85025

== ENCOUNTER 2025-05-18 15:46 | Outpatient (CLI) | payer MEDICARE, MEDICAID, SELFPAY ==
[2025-05-18 17:20] LABS: Hematocrit 41.0 % (42.0-52.0); Hemoglobin 13.6 g/dL (14.1-18.0); Immature Granulocytes % 0.2 %; Mean Corpuscular HGB Conc 33.2 g/dL (31.8-35.4); Mean Corpuscular Hemoglobin 29.7 pg (27.0-31.2); Mean Corpuscular Volume 89.5 fl (80-94); Nucleated Red Blood Cells % 0 %; Platelet Count 238 K/mm3 (142-424); Red Blood Count 4.58 M/mm3 (4.60-6.20); Red Cell Distribution Width-SD 43.4 fL; White Blood Count 5.1 K/mm3 (4.8-10.8)
[2025-05-18 18:53] LABS: Albumin Level 4.9 g/dl (3.5-5.0); Chloride 105 mmol/L (98-107); Potassium 4.6 mmoL/L (3.5-5.1); Sodium 139 mmol/L (136-145)
[2025-05-18 18:55] LABS: Blood Urea Nitrogen 31 mg/dl (9-20)
[2025-05-18 18:56] LABS: Alanine Aminotransferase 37 U/L (12-78); Albumin/Globulin Ratio 1.8 (1.1-1.8); Alkaline Phosphatase 117 U/L (38-126); Anion Gap 14.6 mEq/L (5-15); Aspartate Amino Transferase 51 U/L (17-59); Bilirubin,Total 0.8 mg/dl (0.2-1.3); Calcium 9.7 mg/dl (8.4-10.2); Carbon Dioxide 24 mmol/L (22.0-30.0); Creatinine,Serum 0.90 mg/dl (0.66-1.25); Estimated Glomerular Filt Rate 84 ml/min (>60); GFR (African American) 101 ML/MIN (>60); Globulin 2.7 g/dL (1.3-3.2); Glucose 90 mg/dl (74-100); Magnesium 1.9 mg/dl (1.6-2.3); Total Protein,Serum 7.6 g/dl (6.3-8.2)
[2025-05-18 19:03] LABS: NT Pro Brain Natriuretic Pep. 399 pg/mL (0-125)
[2025-05-18 19:24] LABS: Thyroid Stimulating Hormone 1.57 uIU/mL (0.465-4.68)
--- OUTSIDE RECORDS SUMMARY | 2025-05-19 10:53 | XMS_ITS | Clinical Summary ---
Author Organization [facility] Address [address] [place] [address] Care Team Providers Care Field Hand Name Role Phone Unavailable Primary Care Provider [...] 2005 UKY-Zoster Vaccines (1 of 2) 2005 [id number] Vaccine ( - season) 2024 03/06/2022, 09/08/2021, [...]
== END 2025-05-18 23:59 | disposition home or self-care (01) ==
LOC: LAB.DROPOF 05-19 10:43
PROVIDERS: PCP Nurse Practitioner Family; Visit Provider Nurse Practitioner Family
DX: I49.9 Cardiac arrhythmia, unspecified (principal); J18.9 Pneumonia, unspecified organism; R73.9 Hyperglycemia, unspecified
CPT/HCPCS: 80053; 83735; 83880; 84443; 85025

== ENCOUNTER 2025-05-19 10:11 | Outpatient (CLI) | payer MEDICARE, MEDICAID, SELFPAY ==
--- OUTSIDE RECORDS SUMMARY | 2025-05-19 10:32 | XMS_ITS | Clinical Summary ---
Author Organization [facility] Address [address] [place] [address] Care Team Providers Care Machine Set Up Name Role Phone Unavailable Primary Care Provider [...] 2005 UKY-Zoster Vaccines (1 of 2) 2005 [id number] Vaccine ( - season) 2024 03/06/2022, 09/08/2021, [...]
== END 2025-05-19 23:59 | disposition home or self-care (01) ==
LOC: RT 10:12
PROVIDERS: PCP Nurse Practitioner Family; Visit Provider Physician Assistant
DX: I48.91 Unspecified atrial fibrillation (principal); I44.7 Left bundle-branch block, unspecified; R94.31 Abnormal electrocardiogram [ECG] [EKG]; R73.9 Hyperglycemia, unspecified; J18.9 Pneumonia, unspecified organism
CPT/HCPCS: 80053; 83735; 83880; 84443; 85025; 93225; 93227

== ENCOUNTER 2025-05-21 11:33 | Outpatient (CLI) | payer MEDICARE, MEDICAID, SELFPAY ==
--- OUTSIDE RECORDS SUMMARY | 2025-05-21 11:35 | XMS_ITS | Clinical Summary ---
Author Organization [facility] Address [address] [place] [address] Care Team Providers Care Pug Machine Operator Name Role Phone Unavailable Primary Care Provider [...] 2005 UKY-Zoster Vaccines (1 of 2) 2005 [id number] Vaccine ( - season) 2024 03/06/2022, 09/08/2021, [...]
== END 2025-05-21 23:59 | disposition home or self-care (01) ==
LOC: RT 11:33
PROVIDERS: PCP Nurse Practitioner Family; Visit Provider Physician Assistant
DX: I48.0 Paroxysmal atrial fibrillation (principal); I48.92 Unspecified atrial flutter; I45.89 Other specified conduction disorders; I49.3 Ventricular premature depolarization; I47.29 Other ventricular tachycardia; I20.9 Angina pectoris, unspecified; I11.9 Hypertensive heart disease without heart failure; E78.5 Hyperlipidemia, unspecified
CPT/HCPCS: 93270

== ENCOUNTER 2025-06-03 07:32 | Outpatient (CLI) | payer MEDICARE, MEDICAID, SELFPAY ==
--- NOTE | 2025-06-03 | CA_ITS ---
APPROVED REPORT Exam: Pharmacologic Technologist: Sarah Parikh Ht: 5 ft 10 in Wt: 152 lbs BSA: 1.86 m2 Medical History Medications: Carvedilol, Lasix, Latanoprost, Creon, Lisinopril-HCTZ, Centrum Silver Men, Omeprazole, Potassium Chloride ER, Xarelto, Zinc Acetate. Stress Test Details Test: Lexiscan Reason for pharmacologic stress test: physical limitation. HR Resting HR: 55 bpm Max Heart Rate (APMHR): 151.851122 bpm Max HR Achieved: 76 bpm Target HR (85% APMHR): 128.001924 bpm % of APMHR: 50.33 Recovery HR: 76 bpm BP Resting BP: 154.0/83.0 mmHg Max BP: 160.0/73.0 mmHg Recovery BP: 151.0/84.0 mmHg ECG Resting ECG: Atrial Fibrallation rate controlled-1 Stress ECG Conclusion Symtoms: Dyspnea. Arrhythmias/Ectopy: None. ST-T Changes: less than 0.5mm upsloping ST segment changes. Conclusion: Nondiagnostic ECG/Lexiscan. Electronically signed by : Amber Walls MD 06/03/2025 12:29:42
--- OUTSIDE RECORDS SUMMARY | 2025-06-03 07:34 | XMS_ITS | Clinical Summary ---
Author Organization [facility] Address [address] [place] [address] Care Team Providers Care Doctor Of Podiatry Name Role Phone Unavailable Primary Care Provider [...] 2005 UKY-Zoster Vaccines (1 of 2) 2005 [id number] Vaccine ( - season) 2024 03/06/2022, 09/08/2021, [...]
--- NOTE | 2025-06-03 08:00 | NM_ITS ---
APPROVED REPORT Exam: Nuclear Stress Test Indication: chest pain Patient Location: Outpatient Stress Tech: Sarah Jung AL Tech:JESUS Mahajan RT(R)(N) Ht: 5 ft 9 in Wt: 150 lbs HR: 55 bpm BP: 154/82 mmHg BSA: 1.83 m2 TID: 1.02 BMI: 22.1 History: chest pain Procedure: Patient received 0.4 mg of intravenous Lexiscan, resting heart rate 55 bpm, resting blood pressure 154/83 mmHg, with Lexiscan maximum heart rate achieved was 76 bpm which is 85 % of the maximum predicted heart rate and blood pressure was 160/73 mmHg. With Lexiscan, patient denied any complaint of chest pain. Cardiac Stress and Resting SPECT Images: Cardiac Stress and Resting SPECT images were obtained using technetium 99m Myoview 32.9 mCi stress and 10.57 mCi at rest. Resting and stress imaging in supine and prone positions demonstrate a medium sized, moderate, partially reversible perfusion defect in the basal to mid inferior and inferoseptal LV beard. The left ventricle appears dilated. Gated imaging demonstrates moderate reduction in global LV systolic function. LVEF is calculated at 35%. Conclusion: Medium sized, moderate, partially reversible perfusion defect in the basal to mid inferior and inferoseptal LV beard. Findings are suggestive of partial reversible ischemia. The left ventricle appears dilated. Gated imaging demonstrates moderate reduction in global LV systolic function. LVEF is calculated at 35%. Correlation with new or recent TTE is suggested. Electronically signed by : Amber Walls MD 06/04/2025 23:22:45
[2025-06-03 09:20] VITALS: BP 154/83; BP 160/73; PULSE 55; RESP 14
[2025-06-03] MEDS: ISOTOPE MYOVIEW (PER STUDY) 1 DOSE IV (10:05)
[2025-06-03] MEDS: SODIUM CHLORIDE 0.9% 10ML SYR (RAD ONLY) 10 ML IV ×2 (10:05→10:06)
--- NOTE | 2025-06-03 10:30 | CA_ITS ---
APPROVED REPORT EXAM: Comprehensive 2D, Doppler, and color-flow Echocardiogram Copying Machine Mechanic: Nerissa Long, RCS, RVS Ht: 5 ft 10 in Wt: 152lbs BSA: 1.86 BP: 94/61 mmHg Indications: Afib, ROTH, Murmurs 2D Dimensions Aortic Root 2.76 cm LVEF (Marsh's) 51.60 % Left Atrium 5.52 cm LV Volume 98.50 mL RVID Base (AP4) 3.87 cm (M/F) 2.5-4.1 LV Volume Index 52.352925 mL/m2 M: 34 - 74 LVOT 1.83 cm (M/F) 1.5-2.5 LA Volume 130.00 mL LA Volume Index 69.742438 mL/m2 (M/F) 16-34 EF AP4 52.80 % EF AP2 48.8 % EF BP 51.6 % GL Strain -17.2 % M-Mode Dimensions RVDd 3.89 cm (0.9-2.6) LVDd 4.36 cm (3.5-5.7) Ao Diam 2.98 cm (2.0-3.7) LVDs 3.50 cm (3.5-5.7) IVSd 1.14 cm (0.6-1.1) PWd 1.07 cm (0.6-1.1) EF (Teich) 40.70% EPSs 1.03 cm FS 19.70% EDV (Teich) 85.80 mL TAPSE 1.29 (<1.7) ESV (Teich) 50.90 mL LV Diastology E Decel Time 261 (160-240 msec) E/A Ratio 1.38 MED E' 12.6 (>= 7 cm/sec) MED A' 4.00 cm/s E'/MED E' Ratio 5.55 (<= 14) LAT E' 14.5 (>= 10 cm/sec) LAT A' 3.70 cm/s E/LAT E' Ratio 4.82 (<= 14) Pulm Vein s 82.00 cm/sec Aortic Valve LVOT Max 69.0 (70-110 cm/s) ANTONIO Index 1.01 cm2/m2 LVOT VTI 15.86 cm AoV Peak Praveen. 110.0 (50-130 cm/s) AO Mean GR. 2.40 (<5 mmHg) AO VTI 22.3 (18-25 cm) ANTONIO (VTI) 1.87 (2.5-4.5 cm2) Mitral Valve MV E Max Praveen. 70.0 (40-130 cm/s) MV A Velocity 50.0 (40-130 cm/s) E/A Ratio 1.38 MV Decel. Time 261 (160-240 ms) MV Mean Gr. 1.00 (<2mmHg) Tricuspid Valve TR P. Velocity 264.00 cm/s RAP Estimate 10.00 mmHg RVSP 38.00 mmHg Left Ventricle The left ventricle is normal size. Left ventricular systolic function is mildly reduced. There is normal left ventricular wall thickness. There is moderate hypokinesis of the septal, inferoseptal, and anteroseptal LV berad. Diastolic function is indeterminate. LVEF is 45% Right Ventricle The right ventricle is mildly dilated. The right ventricular systolic function is normal. Atria The left atrium is severely dilated. The right atrium is severely dilated. There is no color Doppler evidence of interatrial shunt. Aortic Valve The aortic valve is mildly thickened. There is no hemodynamically significant aortic valvular stenosis. Trace aortic regurgitation is present. Mitral Valve The mitral valve is normal in structure. No evidence of mitral valve stenosis. Moderate mitral regurgitation is present. Tricuspid Valve The tricuspid valve leaflets are thin and pliable. Mild tricuspid regurgitation. RVSP is 30-35 mmHg. Pulmonic Valve The pulmonary valve is grossly normal in structure. Mild pulmonic valve regurgitation is present. Great Vessels The aortic root is normal in size. IVC is normal in size and collapses >50% with inspiration. Pericardium There is no pericardial effusion. Other Information Study Quality: Fair Conclusion Mildly reduced LV systolic function (LVEF 45%). Moderate hypokinesis of the septal, inferoseptal, and anteroseptal LV beard. Mild RV dilation with normal RV function. Severe biatrial dilation. Moderate MR. Mild TR, mild IA. Electronically signed by : Amber Walls MD 06/04/2025 17:52:59
== END 2025-06-03 23:59 | disposition home or self-care (01) ==
LOC: RAD 07:32
PROVIDERS: PCP Nurse Practitioner Family; Visit Provider Physician Assistant
DX: I08.8 Other rheumatic multiple valve diseases (principal); I11.9 Hypertensive heart disease without heart failure; I48.0 Paroxysmal atrial fibrillation; I20.9 Angina pectoris, unspecified; E78.5 Hyperlipidemia, unspecified; R93.1 Abnormal findings on diagnostic imaging of heart and coronary circulation; R94.39 Abnormal result of other cardiovascular function study
CPT/HCPCS: 78452; 93017; 93018; 93306; A9502; J2785

== ENCOUNTER 2025-06-29 07:51 | Day surgery (SDC) | payer MEDICARE, MEDICAID, SELFPAY ==
[2025-06-29] VITALS (10 sets, daily range): BP systolic 103–154; BP diastolic 57–88; PULSE 38–90; RESP 18–20; O2SAT 91–98; BMI 23.2
--- NOTE | 2025-06-29 07:08 | IR_ITS ---
APPROVED REPORT Patient Location: Outpatient Lead Software Architect: JESUS Yang RT (R) PROCEDURES Left heart catheterization Left ventriculogram Selective coronary angiogram INDICATION New onset cardiomyopathy, Systolic congestive heart failure 35% Informed consent was obtained prior to the procedure. COMPLICATIONS NONE Estimated Blood Loss: LESS THAN 10 ML TECHNIQUE One percent lidocaine used to anesthetize the right anterior aspect of the wrist. The right radial artery was accessed via the Seldinger technique. A 6 Solomon Islander sheath was placed in the right radial artery. 2.5 mg of Verapamil, 800 mcg of nitroglycerin, 1mg Lidocaine and 5000 U Heparin were given through the arterial sheath. The JL3 catheter was also used to perform left heart catheterization, left ventriculogram and selective coronary angiogram. At the end of the procedure the sheath was removed good hemostasis was achieved using Traclet band, patient was transferred to the postop holding area in stable condition. ANGIOGRAPHIC RESULTS The left main artery Normal The left anterior descending artery Normal The circumflex artery Normal The right coronary artery Normal The OSORIO ventriculogram reveals Reduced between 30 to 40% The left ventricular end-diastolic pressure 15 mmHg IMPRESSION Normal coronary arteries Reduced ejection fraction Borderline LVEDP PLAN 1. Continue medical management 2. Consider cardiac MRI Electronically signed by : Luciano Novak MD 06/29/2025 10:40:47
[2025-06-29 08:23] LABS: Hematocrit 41.4 % (42.0-52.0); Hemoglobin 13.3 g/dL (14.1-18.0); Immature Granulocytes % 0 %; Mean Corpuscular HGB Conc 32.1 g/dL (31.8-35.4); Mean Corpuscular Hemoglobin 29.8 pg (27.0-31.2); Mean Corpuscular Volume 92.8 fl (80-94); Nucleated Red Blood Cells % 0 %; Platelet Count 212 K/mm3 (142-424); Red Blood Count 4.46 M/mm3 (4.60-6.20); Red Cell Distribution Width-SD 47.8 fL; White Blood Count 4.9 K/mm3 (4.8-10.8)
[2025-06-29 08:32] LABS: Anion Gap 11.4 mEq/L (5-15); Blood Urea Nitrogen 25 mg/dl (9-20); Calcium 9.3 mg/dl (8.4-10.2); Carbon Dioxide 31 mmol/L (22.0-30.0); Chloride 101 mmol/L (98-107); Creatinine Clearance Estimated 72 mL/min (50-200); Creatinine,Serum 0.90 mg/dl (0.66-1.25); Estimated Glomerular Filt Rate 84 ml/min (>60); GFR (African American) 101 ML/MIN (>60); Glucose 100 mg/dl (74-100); Potassium 3.4 mmoL/L (3.5-5.1); Sodium 140 mmol/L (136-145)
[2025-06-29] MEDS: NITROGLYCERIN 800MCG/8ML SYR (CATH LAB) 800 MCG IA (09:57)
[2025-06-29] MEDS: HEPARIN 1,000 UNITS/ML 10ML VIAL (CATH LAB) 5000 UNIT IV (09:58)
[2025-06-29] MEDS: LIDOCAINE 1% 10ML MDV 10 ML IJ (09:58)
[2025-06-29] MEDS: HEPARIN 1,000 UNITS/500ML NS (CATH LAB) 3000 UNIT IV (09:58)
[2025-06-29] MEDS: VERAPAMIL 2.5MG/ML 2ML VIAL 2.5 MG IV (09:59)
[2025-06-29] MEDS: 0.9 % SODIUM CHLORIDE 500 ML 25 ML IV (09:59)
[2025-06-29] MEDS: FENTANYL 100MCG/2ML VIAL 50 MCG IV (10:20)
[2025-06-29] MEDS: MIDAZOLAM HCL 1MG/ML 5ML VIAL 1 MG IV (10:20)
--- NOTE | 2025-06-29 10:55 | SUR.PHASEII ---
Dr. Novak aware of pt's afib, ranging from 35 bpm-60 bpm. pt asymptomatic at this time.
--- NOTE | 2025-06-29 11:20 | SUR.PHASEII ---
pt sitting up in bed eating lunch.
[2025-06-29] MEDS: IOPAMIDOL-370 (76%);100ML BOTTLE 50 ML IV (11:36)
== END 2025-06-29 12:47 | disposition home or self-care (01) ==
PROVIDERS: PCP Nurse Practitioner Family; Visit Provider Internal Medicine
PROC: 4A023N7 Measurement of Cardiac Sampling and Pressure, Left Heart, Percutaneous Approach (ICD-10-PCS; CPT 93452; principal; 2025-06-29 09:45)
DX: I42.9 Cardiomyopathy, unspecified (principal); I11.0 Hypertensive heart disease with heart failure; I50.22 Chronic systolic (congestive) heart failure; R00.1 Bradycardia, unspecified; Z79.899 Other long term (current) drug therapy; I20.9 Angina pectoris, unspecified; Z87.891 Personal history of nicotine dependence; I48.0 Paroxysmal atrial fibrillation; R06.00 Dyspnea, unspecified; E78.5 Hyperlipidemia, unspecified; Z79.01 Long term (current) use of anticoagulants; I08.0 Rheumatic disorders of both mitral and aortic valves
CPT/HCPCS: 93458; 80048; 85025; 99152; C1725; C1769; J1200; J1644; J3010; J7040; Q9967

== ENCOUNTER 2025-07-21 09:55 | Outpatient (CLI) | payer MEDICARE, MEDICAID, SELFPAY ==
--- OUTSIDE RECORDS SUMMARY | 2025-07-21 09:58 | XMS_ITS | Clinical Summary ---
Author Organization [facility] Address [address] [place] [address] Care Team Providers Care Operating Manager Name Role Phone Unavailable Primary Care [...] 2005 UKY-Zoster Vaccines (1 of 2) 2005 [id number] Vaccine ( - 2024- season) 2025 03/06/2022, 09/08/2021, 03/06/2021, Additional history exists UKY-Influenza [...] age to complete this [place] [id number]
--- NOTE | 2025-07-21 10:30 | MR_ITS ---
APPROVED REPORT Color Separation Photographer: CLINICAL INDICATION Cardiomoypathy evaluation TECHNIQUE Image Acquisition: Cardiac magnetic resonance (CMR) was performed on Siemens Espree MRI 1.5T scanner. Software platform sequences were performed using the Siemens VHX MR B19 platform. A set of three-plane, low-resolution, large [id number] localizers were initially acquired. Then axial, coronal, sagittal TrueFISP, as well as axial HASTE images, were obtained. These were followed by gated TrueFISP breathold cinematic sequences obtained in the short axis with 8 mm slices and 2 mm gaps, 2-chamber (vertical long axis), 3-chamber, 4-chamber (horizontal long axis). A bolus of contrast was injected intravenously with first-pass sequences obtained in the short axis and four-chamber planes. After approximately 10 minutes, a TI rehabilitation aide sequence was performed to determine the optimal TI time. Using the optimized TI time, delayed contrast enhancement segmented inversion???recovery TurboFLASH sequences were obtained in the short axis, 2-chamber, 3-chamber, and 4-chamber projections. 2D-velocity phase mapping was performed. Functional parameters were calculated by offline analysis on an independent workstation ([employer] Platform, [id number]). Contrast: ProHance??? (Gadoteridol) FINDINGS MORPHOLOGY AND FUNCTION Left ventricle: The left ventricle is normal in size. The indexed left ventricular end-diastolic volume (LVEDVi) is 76 ml/m2 (reference range 57-105 ml/m2 in males, 56-96 ml/m2 in females). Mild reduction in left ventricular systolic function is present. There is normal left ventricular wall thickness. Mild global hypokinesis is present. There are no regional wall motion abnormalities noted. LVEF is calculated at 46.2% (reference range 57-77%). Right ventricle: The right ventricle is normal in size. The indexed right ventricular end-diastolic volume (RVEDVi) is 93 ml/m2 (reference range 61-121 ml/m2 in males, 48-112 ml/m2 in females). Mild reduction in right ventricular systolic function is present. RVEF is calculated at 43.2% (reference range 52-72% in males, 51-71% in females). Atria: The left atrium is severely dilated. The maximum indexed left atrial volume is 80 ml/m2 (reference range 26-52 ml/m2 in males, 27-53 ml/m2 in females). The right atrium is severely dilated. The maximum indexed right atrial volume is 63 ml/m2 (reference range 18-90 ml/m2). Aorta: The diameter of the aortic annulus is normal, measuring 21 mm (coronal view reference range 21-30 mm in males, 19-27 mm in females). The diameter of the aortic sinus is normal, measuring 35 mm (coronal view reference range 25-42 mm in males, 24-36 mm in females). The diameter of the sinotubular junction is normal, measuring 23 mm (coronal view reference range 18-32 mm in males, 18-28 mm in females). The diameters of the ascending and descending thoracic aorta are normal. Main pulmonary artery: The main pulmonary artery diameter is normal. Pericardium: The pericardial thickness is normal. The pericardial thickness measures 1.0 mm (normal < 4.0 mm). There is no pericardial effusion. VALVES The valvular morphologies in the visualized sequences appear normal. There is no significant valvular stenosis or regurgitation of the mitral, aortic, tricuspid, or pulmonic valve noted visually. Systolic anterior motion of the mitral valve is not visualized. Ratio of pulmonary to systemic flow, Qp:Qs ratio = 1.2 (normal < or = 1.2, hemodynamically significant shunt > 1.5), demonstrating no evidence of hemodynamically significant shunt. TISSUE CHARACTERIZATION Resting Perfusion: Normal myocardial blood flow at rest. No evidence of resting hypoperfusion. Myocardial Fibrosis and/or edema: Normal gadolinium kinetics are present. No evidence of late gadolinium enhancement is noted, consistent with absence of myocardial scarring, infarction, or necrosis. T2-weighted imaging demonstrates no evidence of myocardial edema or inflammation. OTHER No other significant findings are noted. However, this exam is focused on the cardiac structure and function. IMPRESSION Normal LV size with mild reduction in LV systolic function. LVEDVi= 76 ml/m2 and LVEF= 46.2%. Normal RV size with mild reduction in RV systolic function. RVEDVi= 93 ml/m2 and RVEF= 43.2%. Biatrial enlargement. No CMR evidence of myocardial scarring, infarction, or necrosis. No evidence of myocardial edema or inflammation. Perfusion analysis demonstrates normal blood flow at rest with no evidence of resting hypoperfusion. Ratio of pulmonary to systemic flow, Qp:Qs ratio = 1.2 (normal < or = 1.2, hemodynamically significant shunt > 1.5), demonstrating no evidence of hemodynamically significant shunt. 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 There is no evidence of myocardial scarring or fibrosis. No evidence of infiltrative or restrictive disease. GDMT is recommended. COMPARISON None CRITICAL RESULT None COMMUNICATION The above findings were relayed to the patient at the time of the routine outpatient cardiology follow-up visit, prior to dictation of this report. The findings of this cardiac MR were reviewed, reported, and signed by Shant Walls MD (Stitchdown Thread Laster). Conclusion Electronically signed by : Amber Walls MD 08/19/2025 13:37:06
[2025-07-21] MEDS: SODIUM CHLORIDE 0.9% 10ML SYR (RAD ONLY) 10 ML IV (11:07)
[2025-07-21] MEDS: 0.9 % SODIUM CHLORIDE 50 ML VIAL 20 ML IV (11:07)
[2025-07-21] MEDS: GADOTERIDOL INJ 20ML SYRINGE 16 ML IV (11:08)
== END 2025-07-21 23:59 | disposition home or self-care (01) ==
LOC: RAD 09:56
PROVIDERS: PCP Nurse Practitioner Family; Visit Provider Nurse Practitioner Family
DX: I50.20 Unspecified systolic (congestive) heart failure (principal); I42.9 Cardiomyopathy, unspecified; R93.1 Abnormal findings on diagnostic imaging of heart and coronary circulation
CPT/HCPCS: 75561; A9576

== ENCOUNTER 2025-08-04 10:31 | Emergency (ER) | payer MEDICARE, MEDICAID, SELFPAY ==
[2025-08-04] VITALS (8 sets, daily range): BP systolic 152–180; BP diastolic 82–122; PULSE 58–74; RESP 16–18; TEMP 36.7–36.8; O2SAT 97–99; BMI 22.9
--- NOTE | 2025-08-04 10:50 | HMH.EDGENADL ---
Discharge Plan Disposition Patient Disposition: Home, Self-Care Condition: Good Prescriptions Prescriptions: New polyethylene glycol 3350 [Miralax] 17 gram powder in packet 17 g PO BID Qty: 30 0RF No Action Centrum Silver Men [id number] mcg tablet 1 tab PO DAILY furosemide [Lasix] 20 mg tablet 20 mg PO DAILY Qty: 30 0RF potassium chloride [K-Tab] 20 mEq tablet extended release 20 meq PO DAILY Qty: 30 0RF zinc acetate 50 mg (zinc) capsule 50 mg PO DAILY latanoprost 0.005 % drops 1 drp ophthalmic (eye) HS Qty: 7.5 1RF pravastatin 20 mg tablet 20 mg PO DAILY Qty: 90 1RF omeprazole 40 mg capsule,delayed release(DR/EC) 40 mg PO DAILY Qty: 90 1RF carvedilol 25 mg tablet 25 mg PO BID Qty: 180 1RF Creon 36,000-114,000- 180,000 unit capsule,delayed release(DR/EC) 1 cap PO DAILY Qty: 100 3RF Rx Instructions: Take 1 capsule before meal and snacks; max dose 6 tablets a day lisinopril-hydrochlorothiazide 20-25 mg tablet 1 tab PO DAILY Qty: 90 1RF Xarelto 20 mg tablet 20 mg PO DAILY Qty: 90 1RF Referrals Follow up/Referrals: Cindi Jones APRN [Primary Care Provider, Medical] - See instructions Activity Restrictions/Add. Instructions Additional Instructions/Restrictions: You were seen in the emergency department for constipation. Please take 2-3 doses of MiraLAX per day for the next 3 to 4 days. If this produces soft stools then reduce to 1 dose per day. Please do this for 2 to 3 weeks until constipation is totally resolved. Please be mindful that MiraLAX can make you dehydrated. If symptoms worsen, or new symptoms develop, please return to the emergency department. Clinical Impressions Clinical Impression: Chronic constipation Instructions Patient Instructions: Constipation Print Language Print Language: Lebanese Discharge ED Provider: Iglesia Adams Adult HPI General Chief complaint: Abdominal Pain Stated complaint: abd pain, no BM x several days Time Seen by Provider: 08/04/25 10:45 Mode of Arrival: Ambulatory Source of Information: Patient Description of Symptoms (Recalled from ER Triage Doc. by RN): Pt presents for evaluation of mid abominal pain that radiates to his back x 2 days. Pt denies N/V/D, but states he has not had a BM since saturday. Pt has had a history of constipation in the past. Rates pain as a 10/10 History of Present Illness HPI narrative: This patient is a 70-year-old male with past medical history of hiatal hernia who presents to the emergency department with periumbilical abdominal pain and constipation. Patient reports that he has had chronic constipation in the past and typically takes a stool softener, over the last 4 days he has not been able to have a bowel movement. He has developed some mild periumbilical abdominal pain. Of note during triage with nursing he rated the pain as 10 out of 10, on my exam he describes it is mild. He has a soft abdomen and does not endorse worse pain with palpation. He has been able to tolerate p.o. intake normally, he denies nausea or vomiting. Prior to constipation he did not notice blood in his bowel movements. He denies any abdominal surgeries with the exception of an endoscopy to reduce the hiatal hernia. Related Data Home Medications ?Medication ?Instructions ?Recorded ?Confirmed duqfurgq-cb-jjqho 300 mcg-K 60 1 tab PO DAILY 01/14/25 08/04/25 mcg-lycop 600 mcg-lutein 300 mcg tablet (Centrum Silver Men) zinc acetate 50 mg (zinc) capsule 50 mg PO DAILY 05/19/25 08/04/25 Previous Rx's ?Medication ?Instructions ?Recorded furosemide 20 mg tablet (Lasix) 20 mg PO DAILY #30 tabs 05/18/25 potassium chloride 20 mEq 20 meq PO DAILY #30 tabs 05/18/25 tablet,extended release (K-Tab) carvedilol 25 mg tablet 25 mg PO BID #180 tabs 07/20/25 latanoprost 0.005 % eye drops 1 drp ophthalmic (eye) HS #7.5 mL 07/20/25 wguljj-qywyqfsz-ixbbdso 1 cap PO DAILY EPI #100 caps 07/20/25 (pork)36,000-114,000-180k unit capsule,del rel (Creon) lisinopril 20 1 tab PO DAILY #90 tabs 07/20/25 mg-hydrochlorothiazide 25 mg tablet omeprazole 40 mg capsule,delayed 40 mg PO DAILY #90 caps 07/20/25 release pravastatin 20 mg tablet 20 mg PO DAILY #90 tabs 07/20/25 rivaroxaban 20 mg tablet (Xarelto) 20 mg PO DAILY #90 tabs 07/20/25 polyethylene glycol 3350 17 gram 17 g PO BID #30 ea 08/04/25 oral powder packet (Miralax) Allergies Allergy/AdvReac Type Severity Reaction Status Date / Time No Known Allergies Allergy Verified 08/04/25 10:53 [facility] Disclaimer: The information contained in this section may have been updated after the patient was seen, as this information can be updated by other users. Medical History Cardiomyopathy Abnormal stress test Abnormal echocardiogram HFrEF (heart failure with reduced ejection fraction) Atrial dilatation Angina pectoris Fatigue Chest pressure Chest pain Acid reflux Irregular heart beat History of atrial fibrillation History of hypertension History of hyperlipidemia Surgical History H/O chest tube placement History of appendectomy History of colonoscopy Family History Father Cancer Other Leukemia Social History Smoking Status: Current every day smoker how long ago did patient quit smokin07/04/1995 quit status: quit date established second hand exposure: Yes alcohol intake: current alcohol intake frequency: 0-2 drinks per day substance use type: denies use current occupational status: unemployed and retired Travel in the last 8 weeks?: None caffeine: No Have you lived/traveled outside [place] in past 30 days?: No Contact w/someone who lives/traveled outside US past 30 days?: No Exposure to someone with infectious disease in past 14 days?: No Do you have a fever (greater than 100.4 F or 38 C)?: No Have you tested positive for COVID-19?: No Exposed to someone with COVID-19 in past 14 days?: No Do you have a sore throat?: No Do you have a cough?: No Do you have any weakness?: No Do you have any diarrhea?: No Are you experiencing any unusual bleeding?: No Do you have any muscle aches/pain?: No Do you have any abdominal pain?: No Are you experiencing loss of taste or smell?: No Other Medical History Have you received the Pneumonia Vaccine: Yes ROS Obtained: Yes All systems reviewed & no additional complaints except as documented Physical Exam General General appearance: alert and in no apparent distress Head Head exam: atraumatic and normocephalic Eye Eye exam: Present normal appearance, PERRL and EOMI ENT ENT exam: Present normal exam and normal external ear exam Neck Neck exam: Present normal inspection, full ROM and trachea midline Chest Chest inspection: Present normal inspection and symmetric chest wall rise; Absent tenderness Respiratory Respiratory exam: Absent respiratory distress Cardiovascular Cardiovascular exam: Present regular rate, normal rhythm and other (appears warm and well perfused) Abdominal Exam Abdominal exam: Absent distention or tenderness exam: Absent deferred Extremities Exam Extremities exam: Present normal inspection and full ROM Neurological Exam Neurological exam: Present alert and oriented X3 Psychiatric Psychiatric exam: Present normal affect Skin Skin exam: Present warm and dry Medical Decision Making Medical Records Medical records reviewed: Yes I reviewed the patient's medical records. Screening: Per USPSTF and CDC recommendations, given the prevalence of disease in our region, it is our hospital?s policy to screen for HIV and viral Hepatitis for all patients aged 18 and over and those with ongoing risk factors. Floyd Inquiry Pt receiving controlled substance: No Floyd was queried for this patient: No Vital Signs: 08/04/25 10:35 08/04/25 11:00 08/04/25 11:15 Temperature 98.2 F Temperature Source Oral Pulse Rate 68 67 Pulse Rate [Right] 69 Respiratory Rate 18 Blood Pressure 169/86 H 163/90 H Blood Pressure [Right Arm] 168/110 H Blood Pressure Mean [Right Arm] 129 Blood Pressure Source Blood Pressure Source [Right Arm] Automatic Cuff Blood Pressure Position Blood Pressure Position [Right Arm] Sitting 02 Sat by Pulse Oximetry 98 99 99 Oxygen Delivery Method Room Air 08/04/25 11:45 08/04/25 12:00 08/04/25 12:30 Temperature Temperature Source Pulse Rate 66 63 58 L Pulse Rate [Right] Respiratory Rate Blood Pressure 152/89 H 165/91 H 171/82 H Blood Pressure [Right Arm] Blood Pressure Mean [Right Arm] Blood Pressure Source Blood Pressure Source [Right Arm] Blood Pressure Position Blood Pressure Position [Right Arm] 02 Sat by Pulse Oximetry 97 99 99 Oxygen Delivery Method 08/04/25 12:46 08/04/25 14:48 Temperature 98.1 F Temperature Source Oral Pulse Rate 64 74 Pulse Rate [Right] Respiratory Rate 16 Blood Pressure 155/88 H 180/122 H Blood Pressure [Right Arm] Blood Pressure Mean [Right Arm] Blood Pressure Source Automatic Cuff Blood Pressure Source [Right Arm] Blood Pressure Position Sitting Blood Pressure Position [Right Arm] 02 Sat by Pulse Oximetry 98 Oxygen Delivery Method Room Air Lab Data Lab results reviewed: Yes I reviewed the patient's lab results. Lab Results 08/04/25 10:37: Urine Color Yellow, Urine Appearance Clear, Urine pH 6.0, Ur Specific [place] 1.020, Urine Protein Trace, Urine Glucose (UA) Negative, Urine Ketones Negative, Urine Blood Trace-i, Urine Nitrate Negative, Urine Bilirubin Negative, Urine Urobilinogen 1.0, Ur Leukocyte Esterase Negative, Urine RBC 5-10, Urine WBC 3-5, Ur Squamous Epith Cells 3-5, Urine Bacteria Trace, Urine Mucus Trace 08/04/25 10:46: WBC 5.3, RBC 4.44 L, Hgb 13.6 L, Hct 40.2 L, MCV 90.5, MCH 30.6, MCHC 33.8, RDW 13.6, Plt Count 202, MPV 9.3, Neut % (Auto) 58.1, Lymph % (Auto) 23.5, [place] % (Auto) 6.8, Eos % (Auto) 10.6, Baso % (Auto) 0.6, Neut # (Auto) 3.1, Lymph # (Auto) 1.2, [place] # (Auto) 0.4, Eos # (Auto) 0.6 H, Baso # (Auto) 0.0, Sodium 139, Potassium 3.4 L, Chloride 101, Carbon Dioxide 32 H, Anion Gap 9.4, BUN 23 H, Creatinine 0.80, Estimated Creat Clear 71, Estimated GFR 96, Est GFR ( Amer) 116, Glucose 92, Calcium 9.4, Total Bilirubin 0.7, AST 49, ALT 34, Alkaline Phosphatase 101, Total Protein 7.8, Albumin 4.6, Globulin 3.2, Albumin/Globulin Ratio 1.4, Lipase 78 08/04/25 10:46 08/04/25 10:46 Orders (Tests/Meds): ED MEDICATIONS Discontinued Medications Generic Name Dose Route Start Last Admin Trade Name Freq PRN Reason Stop Dose Admin Iopamidol 75 ml 08/04/25 11:31 08/04/25 11:32 Iopamidol-370 (76%);100ml Bottle IV 08/04/25 11:32 75 ml ONCE ONE Administration Sodium Chloride 10 ml 08/04/25 11:31 08/04/25 11:32 Sodium Chloride 0.9% 10ml Syr (Rad Only) IV 08/04/25 11:32 10 ml ONCE ONE Administration ORDERS Category Date Time Status CT abdomen pelvis w con Stat Cat Scan 08/04/25 10:54 Completed CBC w/Auto Diff [Complete Blood Count Auto Diff] Stat Lab 08/04/25 10:46 Completed CMP [Comprehensive Metabolic Panel] Stat Lab 08/04/25 10:46 Completed Lipase Stat Lab 08/04/25 10:46 Completed Urinalysis and Microscopic Stat Lab 08/04/25 10:37 Completed Medical Decision Narrative: MDM In summary, this 70-year-old male presents to the emergency department today with constipation, periumbilical abdominal pain. Initial evaluation the patient comfortable, hemodynamically stable. Differential diagnosis includes but is not limited to appendicitis, cholecystitis, pancreatitis, constipation, diverticulitis, diverticulosis. Based on these concerns, I ordered labs and imaging work up. Patient received enema for treatment. Labs personally reviewed and interpreted demonstrate no leukocytosis, no significant anemia, no major metabolic abnormalities. CT imaging personally interpreted by me demonstrate significant constipation, no other acute findings within the abdomen or pelvis. Based on the patient's laboratory and imaging workup I felt was most likely his abdominal pain was due to chronic constipation. We performed an enema with significant relief in his symptoms. We sent the patient home on a bowel regimen and instructions to follow-up with his PCP. We gave the patient return precautions of which he verbalized understanding. Critical Care Critical Care Time Critical Care Time: No
[2025-08-04 10:51] LABS: Bilirubin,Urine Negative (Negative); Color,Urine YELLOW (Yellow); Glucose,Urine (UA) Negative (Negative); Ketones,Urine Negative (Negative); Leukocyte Esterase,Urine Negative (Negative); Microscopic, Urine URINE MICROSCOPIC (MICROSCOPIC); PH,Urine 6.0 (5.0-8.5); Protein,Urine TRACE (Negative); Specific Gravity, Urine 1.020 (1.005-1.030); Urobilinogen,Urine 1.0 EU/dl (0.2)
--- NOTE | 2025-08-04 10:54 | CT_ITS ---
FINAL REPORT TECHNIQUE: Thin section axial images are obtained through the abdomen and pelvis after intravenous contrast. Reconstruction images were obtained from the axial data. Exam was performed using dose reduction techniques. CLINICAL HISTORY: periumbilical pain, constipation COMPARISON: 06/19/2023 FINDINGS: LUNG BASES: Lung bases are clear. Heart size is enlarged. LIVER: Homogeneous. No focal lesion. GALLBLADDER/BILIARY SYSTEM: Gallbladder is present. No gallstones. No biliary dilatation. SPLEEN: Unremarkable. PANCREAS: Unremarkable. ADRENALS: Unremarkable. KIDNEYS/URETERS/BLADDER: No hydronephrosis or renal stone. There is a small hypodense right renal lesion which is stable. There is wall thickening of the urinary bladder with surrounding abnormal attenuation concerning for cystitis. GI TRACT: Large hiatal hernia is unchanged. No small bowel obstruction or dilatation. Appendix not visualized. There are no secondary signs of appendicitis. There is a large amount of stool in the rectum. No acute colon abnormality. PELVIC ORGANS: Unremarkable for age. LYMPH NODES/RETROPERITONEUM/MESENTERY: No lymphadenopathy. No abdominal aortic aneurysm. ABDOMINAL WALL: The abdominal wall is intact. FREE FLUID: No ascites. BONES: No acute osseous abnormality. IMPRESSION: Wall thickening of the urinary bladder concerning for cystitis. Large hiatal hernia. Large amount of stool in the rectum. Reviewed, Interpreted and Dictated by Dora Grant MD Transcribed by Jeanne Lewis Authenticated and [facility]
--- OUTSIDE RECORDS SUMMARY | 2025-08-04 11:01 | XMS_ITS | Clinical Summary ---
Author Organization [facility] Address [address] [place] [address] Care Team Providers Care Manager Lan Name Role Phone Unavailable Primary Care Provider [...] 2005 UKY-Zoster Vaccines (1 of 2) 2005 [id number] Vaccine (2024- season) 2025 03/06/2022, 09/08/2021, 03/06/2021, Additional history [...]
[2025-08-04 11:03] LABS: Hematocrit 40.2 % (42.0-52.0); Hemoglobin 13.6 g/dL (14.1-18.0); Immature Granulocytes % 0.4 %; Mean Corpuscular HGB Conc 33.8 g/dL (31.8-35.4); Mean Corpuscular Hemoglobin 30.6 pg (27.0-31.2); Mean Corpuscular Volume 90.5 fl (80-94); Nucleated Red Blood Cells % 0 %; Platelet Count 202 K/mm3 (142-424); Red Blood Count 4.44 M/mm3 (4.60-6.20); Red Cell Distribution Width-SD 45.2 fL; White Blood Count 5.3 K/mm3 (4.8-10.8)
[2025-08-04 11:13] LABS: Alanine Aminotransferase 34 U/L (12-78); Albumin Level 4.6 g/dl (3.5-5.0); Albumin/Globulin Ratio 1.4 (1.1-1.8); Alkaline Phosphatase 101 U/L (38-126); Anion Gap 9.4 mEq/L (5-15); Aspartate Amino Transferase 49 U/L (17-59); Bilirubin,Total 0.7 mg/dl (0.2-1.3); Blood Urea Nitrogen 23 mg/dl (9-20); Calcium 9.4 mg/dl (8.4-10.2); Carbon Dioxide 32 mmol/L (22.0-30.0); Chloride 101 mmol/L (98-107); Creatinine Clearance Estimated 71 mL/min (50-200); Creatinine,Serum 0.80 mg/dl (0.66-1.25); Estimated Glomerular Filt Rate 96 ml/min (>60); GFR (African American) 116 ML/MIN (>60); Globulin 3.2 g/dL (1.3-3.2); Glucose 92 mg/dl (74-100); Lipase 78 U/L (23-300); Potassium 3.4 mmoL/L (3.5-5.1); Sodium 139 mmol/L (136-145); Total Protein,Serum 7.8 g/dl (6.3-8.2)
[2025-08-04] MEDS: IOPAMIDOL-370 (76%);100ML BOTTLE 75 ML IV (11:32)
[2025-08-04] MEDS: SODIUM CHLORIDE 0.9% 10ML SYR (RAD ONLY) 10 ML IV (11:32)
[2025-08-04 12:31] LABS: Mucus,Urine Trace /lpf
[2025-08-04 12:32] LABS: Bacteria,Urine Trace /lpf
--- NOTE | 2025-08-04 13:54 | PC.NURSE ---
Materials called to obtain soap suds enema
--- NOTE | 2025-08-04 14:11 | PC.NURSE ---
Pt up to bedside toilet attempting to have bowel movement
--- NOTE | 2025-08-04 14:29 | PC.NURSE ---
Pt had large bowel movement and states he feels better. Provider notified
== END 2025-08-04 15:00 | disposition home or self-care (01) ==
PROVIDERS: Emergency Provider Student in an Organized Health Care Education/Training Program; PCP Nurse Practitioner Family
DX: R10.33 Periumbilical pain (principal); K59.09 Other constipation; F17.210 Nicotine dependence, cigarettes, uncomplicated
CPT/HCPCS: 74177; 80053; 81001; 83690; 85025; 99284; 99285; Q9967